=== PATIENT | female | born 1950 | race Caucasian/White ===

== ENCOUNTER 2016-09-19 14:13 | Inpatient (IN) | payer MEDICARE, OTHER ==
--- NOTE | ~2016-09-19 | CO ---
Unit #: [id number] #: [id number] Patient: ALEAH CALDERON [id number] [facility]. [place], [place] [address] [id number] I MR#: [id number] NAME: ALEAH CALDERON ROOM: 316 Age: 66 Sex: F Admission Date: 09/19/2016 : 1950 Attending Physician: Lakhwinder Mijares M.D. Primary Care Physician: Bashir Gabriel M.D. Consultation Date: 09/19/2016 CONSULTATION REPORT REASON FOR CONSULTATION Possible pneumonia. HISTORY OF PRESENT ILLNESS A 44-year-old gentleman, who has cardiomyopathy, hypertension, and tobacco use, presents with a several day history of gradual increase shortness of breath. He did have some cough with mucopurulent sputum. He presented to the emergency room and had diffuse pulmonary infiltrates, markedly elevated blood pressure and evidence that consists of congestive heart failure. He has received Lasix in addition to nebulized bronchodilators and antibiotics and he feels dramatically better this afternoon. He did not notice much in the way of wheezing. He did have fever and maybe some scant hemoptysis, mainly mucus with some blood tinged. PAST MEDICAL HISTORY Remarkable for COPD, hypertension, and left ventricular dysfunction. MEDICATIONS At home, he uses Symbicort only p.r.n. and he likely uses albuterol p.r.n. He was on Catapres, Lortab, Coreg, hydralazine, aspirin, and Prinivil. ALLERGIES No known medical allergies. SOCIAL HISTORY He smokes. He drinks. He denies marijuana or other recreational drug use. He is retired. He worked in construction. There are no ongoing occupational or recreational exposures. FAMILY HISTORY No definite familial lung disease. REVIEW OF SYSTEMS He did have fever. No headache. No chest pain, palpitations, abdominal pain, melena, hematochezia, hematuria, dysuria, focal weakness, paresthesias, leg pain, or swelling. He feels much better now. Further review of systems negative. PHYSICAL EXAMINATION GENERAL: Reveals the patient, who is in no acute distress on room air. In fact, he was walking around the hospital, I had to call him back to his room. VITAL SIGNS: He had a T-max of 102.2, now he is afebrile; pulse 77; respiratory rate is 18; blood pressure 141/84. He is 6 feet tall, 254 Unit #: [id number] #: [id number] Patient: ALEAH CALDERON pounds, BMI is 34. HEENT: Pupils are equal, round, and reactive to light. Sclerae anicteric. Head, atraumatic. NECK: Supple. No supraclavicular or cervical adenopathy appreciated. CHEST: Clear. No wheeze, stridor, consolidation, or crackles. CARDIAC: Reveals regular rate and rhythm. Possible soft murmur. No gallop. ABDOMEN: Soft and nontender. No hepatomegaly or rebound. EXTREMITIES: Reveal no clubbing, cyanosis, or edema. No calf tenderness. SKIN: Warm and dry without rash or diaphoresis. NEUROLOGIC: Grossly intact. No focal motor or sensory deficits. DIAGNOSTIC STUDIES LABORATORY RESULTS: BUN 17, creatinine is 1.6, potassium is 3.3 and has been replaced. His BNP is 387. Lactic acid was 2.9, originally it was 1.1. White blood cell count 12.4, hemoglobin 13.7, platelet count 198. Influenza screen negative. Urinalysis fairly unremarkable. IMAGING STUDIES: Chest x-ray, diffuse pulmonary infiltrates bilaterally consistent with pulmonary edema. Blood cultures performed and are pending. CARDIOVASCULAR STUDIES: EKG, T-wave abnormalities consistent with LVH and repolarization. IMPRESSION 1. Pulmonary infiltrates consistent with congestive heart failure. 2. Fever, mucus production, cough, possible pneumonia, possible atypical. 3. Scant hemoptysis most likely secondary to infection. 4. Likely obstructive sleep apnea with snoring. 5. Left ventricular dysfunction. 6. Chronic kidney disease. 7. Hypertension. PLAN Antibiotics for now. Check procalcitonin, Legionella, strep urinary antigens, and respiratory pathogen panel. Follow up cultures, adjust antibiotics as needed. Certainly, no smoking would be of great benefit. I would suggest outpatient PFT and nocturnal polysomnography. We will consider CT scan of the chest and certainly bronchoscopy would be considered if hemoptysis reoccurs. Thank you very much for allowing me to participate in the care of Mr. Denton. Dictated by... Ton Abreu M.D. RENATA/carola TD: 09/20/2016 02:25 JOB #: [id number] Unit #: [id number] #: [id number] Patient: ALEAH CALDERON CONSULTATION REPORT X Ton Abreu MD CONSULTATION REPORT
--- NOTE | ~2016-09-19 | CR72 ---
[facility] A Service of [facility] & [facility] RADIOLOGY TEXT RESULTS PATIENT: ALEAH CALDERON LOCATION: [facility] 316-01 : 48 UNIT #: [id number] AGE: [address]: Lakhwinder Mijares MD SEX: F ORDER DR: [id number] [facility] [address] [facility]. [place], [place] [address] [id number] I MR#: [id number] Acc #: [id number] NAME: ALEAH CALDERON : 1950 SEX: F STUDY DATE/TIME: 09/19/2016 13:31 [facility] 15770 STUDY DESCRIPTION: CR Chest Single View Portable Attending Physician: Kalyani Stout M.D. Ordering Physician: Terrie Foley M.D. Primary Care Physician: Bashir Gabriel M.D. MEDICAL IMAGING REPORT This report is preliminary unless electronic signature is present EXAM Chest portable, 09/19/2016, 1331 hours. CLINICAL HISTORY 66-year-old woman with complaint of shortness of air, cough and fever today, low oxygen saturation levels while on 3 L of oxygen supplementation. COMPARISON 08/07/2016 FINDINGS Portable upright chest demonstrates normal cardiac, mediastinal and hilar contours. There is diffuse interstitial change throughout both lungs, new from the prior study, likely representing diffuse edema. There is no airspace density or pleural effusion. IMPRESSION New bilateral diffuse interstitial changes in both lungs, which is moderate, likely representing edema. No definite airspace edema, pneumonia or effusion seen. STAT * RESULT Dictated by... Mercy Fernandez M.D. THIS IS AN ELECTRONICALLY VERIFIED REPORT Mercy Fernandez M.D. at 09/20/2016 9:25 AM Saumya TD: 09/19/2016 14:01 JOB #: [id number] [facility] A Service of [facility] & [facility] RADIOLOGY TEXT RESULTS PATIENT: ALEAH CALDERON LOCATION: [facility] 316-01 : 48 UNIT #: [id number] AGE: [address]: Lakhwinder Mijares MD SEX: F ORDER DR: MEDICAL IMAGING REPORT COPY
--- NOTE | ~2016-09-19 | CO ---
Unit #: [id number] #: [id number] Patient: ALEAH CALDERON [id number] [place], [place] [address] [id number] I MR#: [id number] NAME: ALEAH CALDERON ROOM: 316 Age: 66 Sex: F Admission Date: 09/19/2016 : 1950 Attending Physician: Lakhwinder Mijares M.D. Primary Care Physician: Bashir Gabriel M.D. Consultation Date: 09/20/2016 CONSULTATION REPORT DISCREPANCY IN FLORINEF DOSAGE, KINDLY VERIFY REASON FOR CONSULTATION Evaluate for congestive heart failure. HISTORY OF PRESENT ILLNESS This is a 66-year-old, white female, whom we have seen in the past, but does not follow up in the office; has severe COPD; wears home oxygen at night; diabetic; hypertension; chronic kidney disease; had a cardiac cath back in 2004, which was normal coronaries; EF at that time was 35% to 40%, and last year had an echo that is LVEF was 50% to 55%; has moderate mitral regurgitation; moderate pulmonary artery hypertension; has seizure disorder; chronic anemia; nicotine abuse; she came to the hospital with increased shortness of breath and nonproductive cough and weakness. The patient was hospitalized and discharged on 08/10/2016 with episode of acute on chronic kidney failure, hypotension that was secondary to dehydration with adrenal insufficiency. Cosyntropin stimulation test was abnormal. They started her on low-dose dexamethasone. She also has a history of orthostatic hypotension and has been on Florinef. The patient lives at home with who takes care of her. She went to her primary care physician about a week ago. Dr. Gabriel was giving some steroids for some exacerbation of her COPD. He was worried that she was trying to get bronchitis. The patient did report that she had pneumonia a few months ago. The last dose of her steroid was yesterday. Her does not feel like she is just showing any signs of improvement. She has more dyspnea with exertion and also her oxygen level is a little low during the day without her oxygen and she usually only uses oxygen at nighttime. The patient had lost 20 pounds over the last 6 months, but had regained most of that weight back. She does not feel like she is having any lower extremity edema. She has taken all of her medications as prescribed. She denies any chest pain; pain in her neck, bilateral jaws, shoulders, arms, or elbow. She says she might feel occasional palpitation, but does not feel heart racing. She has had no dizziness, presyncope, or syncope. In the emergency room, the patient's blood pressure was 136/60, heart rate was 91, respirations 13, her oxygen level was 95% on 3 L. Her chest x-ray shows new bilateral interstitial changes concerning for edema. Her BNP is 244. EKG shows normal sinus rhythm. Cardiology has been asked to assist with evaluation and management. PAST MEDICAL HISTORY 1. In 2004, had a cardiac cath that revealed normal coronaries. At that time, her LVEF of 35% to 40%. Unit #: [id number] #: [id number] Patient: ALEAH CALDERON 2. Last 2D echo on 09/05/2015 shows LVEF of 50% to 55%, [id number] mitral regurgitation, mild tricuspid regurgitation with elevated RVSP of 34 mmHg. 3. Chronic diastolic congestive heart failure. 4. Severe COPD, wears home O2 at h.s. 5. Diabetes mellitus type 2. 6. Hyperlipidemia. 7. Hypertension. 8. Chronic kidney disease. Follows with Dr. Luis. 9. Seizure disorder. 10. Bipolar disorder. 11. Chronic back pain. 12. Peripheral neuropathy. 13. Chronic anemia due to folic acid, B12 deficiency. 14. History of orthostatic hypotension, on Florinef. 15. Recent hospitalization, discharged on 08/10/2016 with acute on chronic kidney disease, hypotension, I thought it was dehydration with adrenal insufficiency-cosyntropin stimulation test was abnormal and started on low-dose dexamethasone and was discharged without a diuretic. PAST SURGICAL HISTORY 1. Left knee surgery. 2. Hysterectomy. HOME MEDICATIONS Oxycodone 30 mg every 6 hours p.r.n., alprazolam 0.5 mg t.i.d. p.r.n., levothyroxine 75 mcg p.o. daily, quetiapine 400 mg p.o. at bedtime, Keppra 1000 mg b.i.d., calcitriol 0.25 mcg p.o. daily, dexamethasone 0.5 mg daily, metoprolol 12.5 mg p.o. b.i.d., aspirin 81 mg p.o. daily, magnesium 400 mg p.o. b.i.d., Proventil inhalation every 4 hours p.r.n., sodium bicarb 650 mg p.o. b.i.d., fluoxetine 20 mg p.o. b.i.d., Florinef 0.05 mg p.o. b.i.d. ALLERGIES No known drug allergies. SOCIAL HISTORY The patient lives with her . She ambulates with a cane and has a walker. She is very sedentary due to her multiple medical problems. She continues to smoke at least half a pack of cigarettes a day. She has been smoking most of her adult life. No alcohol or illicit drug abuse. FAMILY HISTORY Has lung cancer. Otherwise, no CAD reported. REVIEW OF SYSTEMS See details in HPI. PHYSICAL EXAMINATION GENERAL: Ms. Calderon is a 66-year-old, white female, in no acute respiratory distress. She is awake, alert, and oriented. VITAL SIGNS: Blood pressure is 151/78, heart rate 72, respirations 18, temperature 97.3, O2 saturations 100% on 3 L. NECK: Trachea midline. No thyromegaly. No lymphadenopathy. No jugular venous distention. HEART: S1, S2. Regular rate and rhythm. Soft systolic murmur at left sternal border. LUNGS: Diminished with faint scattered wheezes throughout. Unit #: [id number] #: [id number] Patient: ALEAH CALDERON ABDOMEN: Soft, nontender. Positive bowel sounds present. EXTREMITIES: Pedal pulses are palpable. Trace pedal edema. DIAGNOSTIC STUDIES LABORATORY RESULTS: ABGs; pH is 7.377, pCO2 of 55.7, pO2 of 57.7, O2 sats 87.2 that is on FiO2 of 4 L. Glucose is 123, BUN 30, creatinine 1.6, eGFR is 34.1, sodium 139, potassium 4.6, chloride 100, CO2 of 32, calcium is 8.5, phosphorus is 3.0, magnesium is 1.4, total protein 5.4, albumin 2.9, bilirubin total 0.6, AST 9, ALT 8, alkaline phosphatase is 59. BNP is 244. Lactic acid is 1.1. INR is 1.0. WBCs 5.5, hemoglobin 9.6, hematocrit 29.4, and platelets 147. Blood cultures are pending. Sputum culture pending. Initial cardiac enzymes; CK-MB is less than 1.0. Troponin is less than 0.05. CK-MB is less than 1.0. Troponin less than 0.05. IMAGING STUDIES: Chest x-ray shows new bilateral diffuse interstitial changes in both lungs, which is moderate likely represented edema, no definite airspace edema, pneumonia, or effusions seen. CARDIOVASCULAR STUDIES: EKG shows normal sinus rhythm with ventricular rate of 95 beats per minute, questionable Q-wave in V1, poor R-wave progression. IMPRESSION 1. Acute on chronic respiratory failure. 2. Acute exacerbation of chronic obstructive pulmonary disease. 3. Chronic diastolic congestive heart failure. Left ventricular ejection fraction of 50% to 55% on last 2D echo on 09/05/2015 with [id number] mitral regurgitation, mild tricuspid regurgitation, and elevated RVSP 34 mmHg. 4. Chronic kidney disease. 5. In 2004, normal coronaries on cardiac cath. 6. Diabetes mellitus type 2. 7. Hyperlipidemia. 8. Hypertension. 9. Seizure disorder. 10. Bipolar. 11. Chronic back pain. 12. Peripheral neuropathy. 13. Adrenal insufficiency, started on dexamethasone. 14. History of orthostatic hypotension, on Florinef. 15. Nicotine abuse. PLAN 1. Cardiology consult to assist with evaluation and management. 2. On interview and exam, it appears that her symptoms are likely more pulmonary in nature. She does have some scattered wheezes, but no significant swelling in her lower extremities, abdomen, and no significant jugular venous distention. Dr. Miller discussed with the patient and her at length her cardiac cath that was done back in 2004 revealed normal coronaries. Her echo done in 2016 shows LVEF of 50% to 55%. 3. We will continue to manage medically. 4. Pulmonology has been consulted to assist with evaluation and management. She is on IV steroids along with her nebulizer inhalers. Unit #: [id number] #: [id number] Patient: ALEAH CALDERON 5. We will supplement mag. We will check magnesium level with magnesium sulfate 2 g IV x1 and then continue on her oral supplement and we will check her electrolytes tomorrow. 6. Encourage the patient to completely quit smoking. Smoking cessation information provided to the patient. 7. On exam, there were no signs or symptoms of acute congestive heart failure. 8. Pulmonary does suggest maybe a CT of the chest. 9. Further recommendations pending per Dr. Freeman. Thank you very much for allowing us to assist in the care. Dictated by... Albert Johnson/carola TD: 09/21/2016 02:32 JOB #: [id number] CONSULTATION REPORT X Sarah Mclean APRN X CONSULTATION REPORT
--- NOTE | ~2016-09-19 | DS ---
Unit #: [id number] #: [id number] Patient: ALEAH CALDERON [id number] [place], [place] [address] [id number] I MR#: [id number] NAME: ALEAH CALDERON ROOM: 316 Age: 66 Sex: F Admission Date: 09/19/2016 : 1950 Discharge Date: 09/22/2016 Attending Physician: Lakhwinder Mijares M.D. Primary Care Physician: Bashir Gabriel M.D. DISCHARGE SUMMARY DISCHARGE DIAGNOSES 1. Acute chronic obstructive pulmonary disease exacerbation. 2. Acute hypoxic respiratory failure secondary to #1. 3. Acute tracheobronchitis. 4. Chronic diastolic heart failure with pleural effusion. Cardiology had recommended Lasix every other day, had a small dose of 100 mg orally daily. 5. B12 and folate deficiency, will be replacing. 6. Chronic stage 3 kidney disease, followed by nephrology outpatient. 7. Adrenal insufficiency, chronically on Florinef and dexamethasone. 8. Chronic pain, is on chronic (1) pain management. 9. History of seizure disorder, stable on Keppra. 10. Dyslipidemia, stable on statin therapy. 11. Bipolar disorder, no aminata during this hospitalization. 12. Tobacco usage, we have stressed cessation, patient is willing to try this. CONSULTANTS [facility] cardiology with Dr. Miller and pulmonary with Dr. Abreu and Dr. Morris. PROCEDURES None. IMAGING 1. Chest x-ray on 09/19/2016 with Impression: New bilateral diffuse interstitial changes in both lungs, which is moderate likely representing edema, with no definite air space edema, pneumonia, or effusion seen. 2. On 09/21/2016, chest x-ray at that time revealed impression: Persistent interstitial opacities with worsening hazy consolidation in the mid to lower lung zones on the right. Findings on the right are suspicious for pneumonia in the appropriate clinical context. Differential would also include asymmetric edema or atelectasis. Followup to clearing is recommended. Imaging features suggestive of underlying COPD with fibrosis and scarring. No pneumothorax. 3. CT on 09/21/2016, this is a decubitus CT to assess the pleural effusion. Impression: Small free-flowing right pleural effusion. LABS On the day of discharge, patient's labs includes BMP - glucose 139, BUN 36, creatinine 1.8, sodium 137, potassium 3.9, chloride 98, calcium 8.3, phosphorus 3.0, magnesium 1.6. CBC with WBC of 7.1, rbc's is 2.58, hemoglobin 8.5, hematocrit 25.6, MCV 99.1, MCH is 32.8, MCHC 33.1, RDW Unit #: [id number] #: [id number] Patient: ALEAH CALDERON 16.0, platelet is 137, MCV is 9.3. We did assess patient's anemia status. Patient was found to have iron of 26, total iron binding capacity is 232, transferrin is 166, trans saturation is 11%. B12 is 254, folate 3.4. Did assess patient's TSH was 0.70. HOSPITAL COURSE The patient is a pleasant, 66-year-old female with a past medical history of chronic respiratory failure, COPD, diastolic CHF, chronic anemia, chronic kidney disease, adrenal insufficiency, chronic pain, seizure disorder, hyperlipidemia, bipolar disorder, who presents to the emergency department due to symptoms of shortness of breath. The patent states she had a one week history of increasing shortness of breath and nonproductive cough. She denies any fever. She was apparently seen by her primary care physician a week prior to hospitalization and was given steroids, which she was taking as prescribed. The last dose was the day prior to hospitalization. She has denied any chest pain. She has a hospital bed and sleeps with the bed propped up, which is not a new symptom. She has denied paroxysmal nocturnal dyspnea. She has had some dyspnea on exertion. She states she had gained 20 pounds over the past month. She has been taking her medications as prescribed. Her oxygen saturation was 80% on 3 L at home. She typically uses 3 L to sleep at night only. The patient's tells me that she was previously on Lasix 20 mg orally every other day. He cannot tell me who started this or who had discontinued it, but patient did tell me that her circulator did not do this. Upon arrival in the emergency department the patient's oxygen saturation was 95% on 3 L, pulse 91, respiratory rate is 13, blood pressure was 136/60. Her chest x-ray had shown new bilateral interstitial change concerning for edema. BNP was 234. She was admitted to [facility]. Dr. Abreu seen in consultation for the acute hypoxic respiratory failure. She was treated with aggressive IV Solu-Medrol and bronchiolitics and bronchodilators. She was seen in consultation with cardiology with concern with some indeterminate heart failure component, who initially thought the patient had no heart failure but with the repeated chest x-ray with the interstitial findings, as well as pleural effusion, the patient eventually was decided to be placed back on Lasix 20 mg orally every other day. At this time, the patient tells me that she is back to her normal baseline. She is back on 2 L. She is saturating well at 98%. I am assessing to see if she needs chronic continuous O2 usage during the day, in addition to her not nocturnal use only or not. She tells me that she is not longer dyspneic and she is ready to be discharged home. ACTIVITIES Resume activities as prior to hospitalization with ambulating every day as tolerated. DIET To resume a heart healthy diet. FOLLOWUP INSTRUCTIONS 1. To follow up with Dr. Morris within three weeks. 2. She will have a followup with Dr. Miller in four to six weeks. 3. Followup with her primary care physician within one to two weeks. DISCHARGE MEDICATIONS 1. Symbicort two puffs inhaled twice daily. 2. DuoNeb one inhalation 4 times daily as needed for dyspnea and/or wheezing. Unit #: [id number] #: [id number] Patient: ALEAH CALDERON 3. Prednisone 40 mg orally for 4 days; 30 mg orally for 4 days; 20 mg orally for 4 day; and then 10 mg orally daily. 4. Doxycycline 100 mg orally twice daily for five days. 5. Florinef 0.05 mg orally twice daily. 6. Bicarbonate 650 mg orally twice daily. 7. Magnesium oxide 400 mg orally twice daily. 8. Dexamethasone 0.5 mg orally daily. 9. Keppra 1,000 mg orally twice daily. 10. Fluoxetine 20 mg orally twice daily. 11. Quetiapine 400 mg orally at bedtime. 12. Alprazolam 0.5 mg orally 3 times daily as needed for anxiety. 13. Metoprolol tartrate 12.5 mg orally twice daily. 14. Lasix 20 mg orally every other day to be started by tomorrow, 09/23/2016. 15. Iron gluconate 324 mg orally twice daily. 16. Aspirin 81 mg orally daily. 17. Oxycodone 30 mg orally every 6 hours as needed for severe pain. 18. Levothyroxine 75 mcg orally daily. 19. Calcitrol 0.5 mg orally daily. 20. Vitamin B12 1,000 mcg orally daily. This dictation took 40 minutes to include patient education and to coordinate care. Dictated by... Justin Moya PA-C for Jai Hickman/myles TD: 09/22/2016 12:27 JOB #: [id number] DISCHARGE SUMMARY X X DISCHARGE SUMMARY
--- NOTE | ~2016-09-19 | CR67 ---
[facility] A Service of [facility] & [facility] RADIOLOGY TEXT RESULTS PATIENT: ALEAH CALDERON LOCATION: [facility] 316-01 : 48 UNIT #: [id number] AGE: [address]: Lakhwinder Mijares MD SEX: F ORDER DR: [id number] [facility] [address] [place], [place] [address] [id number] I MR#: [id number] Acc #: [id number] NAME: ALEAH CALDERON : 1950 SEX: F STUDY DATE/TIME: 09/21/2016 17:11 UNIT: A U ROOM: [facility] STUDY DESCRIPTION: CR Chest Decubitus Moses Attending Physician: Lakhwinder Mijares M.D. Ordering Physician: Gokul Morris M.D. Primary Care Physician: Bashir Gabriel M.D. MEDICAL IMAGING REPORT This report is preliminary unless electronic signature is present EXAM Bilateral decubitus views of the chest, 09/21/2016 HISTORY Shortness of breath, generalized weakness and cough for 2 weeks. Benign essential hypertension, followup pleural effusions. FINDINGS Bilateral decubitus views of the chest show small free-flowing right pleural effusion with atelectatic changes at the right lung base. No left pleural effusion is identified. IMPRESSION Small free-flowing right pleural effusion. Dictated by... Sal Do M.D. THIS IS AN ELECTRONICALLY VERIFIED REPORT Sal Do M.D. at 09/22/2016 2:16 PM STEF/jesus TD: 09/22/2016 01:47 JOB #: [id number] MEDICAL IMAGING REPORT COPY
--- NOTE | ~2016-09-19 | CR63 ---
[facility] A Service of [facility] RADIOLOGY TEXT RESULTS PATIENT: ALEAH CALDERON LOCATION: [facility] 316 : 48 UNIT #: [id number] AGE: [address]: Lakhwinder Mijares MD SEX: F ORDER DR: [id number] [facility]. [place], [place] [address] [id number] MR#: [id number] #: [id number] NAME: ALEAH CALDERON : 1950 SEX: F STUDY DATE/TIME: 09/21/2016 7:06 UNIT: [address] ROOM: [facility] STUDY DESCRIPTION: CR Chest 2 View Attending Physician: Lakhwinder Mijares M.D. Ordering Physician: Lakhwinder Mijares M.D. Primary Care Physician: Bashir Gabriel M.D. MEDICAL IMAGING REPORT This report is preliminary unless electronic signature is present EXAM Chest 2 views, 09/21/2016 INDICATION 66-year-old female with COPD, shortness of air. Symptoms since yesterday. TECHNIQUE 2 views of the chest were performed. COMPARISON 09/19/2016 FINDINGS Patient is rotated to the right. Cardiac silhouette borderline in size and stable. Coarsened interstitial opacities are present bilaterally likely reflecting underlying fibrosis and scarring. Worsening hazy consolidation in the mid and lower lung zones on the right suspicious for pneumonia in the appropriate clinical context. No pneumothorax. No effusion. Thoracic spondylosis. IMPRESSION 1. Persistent interstitial opacities with worsening hazy consolidation in the mid and lower lung zones on the right. Findings on the right are suspicious for pneumonia in the appropriate clinical context. Differential would also include asymmetric edema or atelectasis. Followup to clearing is recommended. 2. Imaging features suggestive of underlying COPD with fibrosis and scarring. No pneumothorax. Dictated by... Pradeep Leyva M.D. THIS IS AN ELECTRONICALLY VERIFIED REPORT [facility] A Service of [facility] RADIOLOGY TEXT RESULTS PATIENT: ALEAH CALDERON LOCATION: [facility] 316 : 48 UNIT #: [id number] AGE: [address]: Lakhwinder Mijares MD SEX: F ORDER DR: Pradeep Leyva M.D. at 09/21/2016 3:22 PM OLAMIDE/suzette TD: 09/21/2016 10:55 JOB #: [id number] MEDICAL IMAGING REPORT COPY
--- NOTE | ~2016-09-19 | A ---
[facility] DATE: 09/20/16 Patient: ALEAH CALDERON Physician: MARISABEL Address: [address] [facility] Room/Bed: [address] [place] [address], Zip: [place] [address] Admit Date: 09/19/16 Date of : 48 Height: 5 5 Weight: 160 72.6 NUTRITIONAL ASSESSMENT: REASON: Consult RE: Weight loss, and 4 points nutrition screen risk RE: 20# unplanned weight loss 66 yo female admitted for SOB PMH: Cardiomyopathy, acute on chronic kidney disease, COPD, CHF, chronic respiratory failure, seizure disorder, HLD, HTN Anthropometrics: Ht: 65" Wt: 72.6 kg BMI: 26.6 Labs: Gluc 122 BUN 30 Creat 1.6 Alb 2.9 AST 9 ALT 8 Mg++ 1.4 GFR 34.1 BNP 232 Meds: Ferrous gluconate, solu-medrol, MgS04, KCl, vitamin B12, Mag-ox, sodium bicarbonate, lopressor, NaCl, levothroid I/O & Bowel function: 240/2, last BM 3/6 Skin Integrity: Dry skin BUE/ feet/ trunk Abrasion/ scab/ bruising- BUE/ right knee/ back Edema: none noted Diet: Heart healthy with fluid restriction per MD Assessment: Chart reviewed, events noted. Pt admitted for SOB. RD spoke with the pt and her at bedside. Pt reports that she lost ~20# over the past few months; however, she has actually gained weight over the past few weeks with improved intake and appetite. Pt believes this may be due to fluid accumulation. RD explained the pt's heart healthy diet and fluid restriction. Pt declines the need for supplements, stating they give her diarrhea. Pt consumed ~50% of her lunch per RD observation of tray. Pt denied having any further nutritional needs. RD noticed the pt's fluid restriction was not ordered in [facility], and had party plan sales unit advisor add the fluid restriciton (1800 mL FR ordered by MD). Dx: Unintended weight gain RT PMH, possibly excessive fluid intake AEB pt reported 10# weight gain. Intervention: 1. Heart healthy diet 2. 1800 mL fluid restriction Monitoring, Evaluation and Goals: [facility] DATE: 09/20/16 Patient: ALEAH CALDERON Physician: MARISABEL Address: [address] [facility] Room/Bed: [address] [place] [address], Zip: [place] [address] Admit Date: 09/19/16 Date of : 48 Height: 5 5 Weight: 160 72.6 1. Intake; tolerate >50-75% meals 2. Labs; WNL 3. Weight; prevent unintentional weight gain or loss Recommendations: 1. Continue heart healthy diet (this includes 2 gram Na+ restriction) with fluid restriction per MD. 2. Contact RD if further diet education needed. Pt is at mild nutritional risk. Respectfully, ERNIE ENGEL RD, LD [facility] cc: client file
--- NOTE | ~2016-09-19 | EKG ---
PATIENT: ALEAH CALDERON UNIT #: [id number] Ventricular Rate: 85 BPM Atrial Rate: 85 BPM P-R Interval: 104 ms QRS Duration: 74 ms Q-T Interval: 354 ms QTC Calculation(Bezet): 421 ms P [place]: 54 degrees Calculated R [place]: 59 degrees Calculated T [place]: 73 degrees Diagnosis Line: Sinus rhythm with short OK Diagnosis Line: Otherwise normal ECG Diagnosis Line: When compared with ECG of 07-AUG-2016 22:06, Diagnosis Line: QT has shortened Diagnosis Line: Confirmed by GATO RUTLEDGE MD ([id number]) on Diagnosis Line: 09/20/2016 4:10:30 PM INTERPRETING MD: MATY WEN
--- NOTE | ~2016-09-19 | CO ---
Unit #: [id number] #: [id number] Patient: ALEAH CALDERON [id number] [place], [place] [address] [id number] I MR#: [id number] NAME: ALEAH CALDERON ROOM: 316 Age: 66 Sex: F Admission Date: 09/19/2016 : 1950 Attending Physician: Lakhwinder Mijares M.D. Primary Care Physician: Bashir Gabriel M.D. Consultation Date: 09/19/2016 CONSULTATION REPORT REASON FOR CONSULTATION Respiratory failure, COPD. HISTORY OF PRESENT ILLNESS A 66-year-old female with COPD and chronic respiratory failure, but only partially compliant with oxygen, who has seen Dr. Morris in the past, presents with increasing shortness of breath. She noticed decreased saturations during the day and she "had used my oxygen more than usual." She was treated with steroids as an outpatient and improved, but then worsened. Here, she is required 3 to 5 L of oxygen to maintain adequate saturations. She has had tight wheezing, no sputum production, no chest pain or hemoptysis. There has been no fever. PAST MEDICAL HISTORY Remarkable for chronic respiratory failure, COPD, congestive heart failure, anemia, chronic kidney disease, adrenal insufficiency, seizure disorder, hyperlipidemia, and bipolar disorder. MEDICATIONS She cannot identify any inhalers that she is on. She does tell me that she takes them only as needed. Other medications per med rec sheet includes oxycodone a fairly large dose 30 mg every 6 hours, Xanax, Synthroid, quetiapine daily, Keppra, Rocaltrol, dexamethasone, metoprolol, aspirin, magnesium, mini nebs with albuterol, Antacids, Sarafem, and Florinef. ALLERGIES No known medical allergies. SOCIAL HISTORY She continues to smoke. FAMILY HISTORY No familial emphysema. There is lung cancer in her family. REVIEW OF SYSTEMS She denies fever, chills, chest pain, palpitations, abdominal pain, trouble swallowing, melena, hematochezia, hematuria, dysuria, focal weakness, paresthesias, leg pain, swelling out of the ordinary. Further review of systems negative. PHYSICAL EXAMINATION GENERAL: Reveals a patient, who is in sleep, very comfortable in the emergency room. She awakened easily. Unit #: [id number] #: [id number] Patient: ALEAH CALDERON VITAL SIGNS: She is afebrile, pulse is 103, respiratory rate is 25, blood pressure is 149/73, 5 feet 5 inches, 155 pounds. HEENT: Pupils are equal, round, and reactive to light. Sclerae anicteric. Head, atraumatic. Mucous membranes moist. She has dentures in place. NECK: Supple. No supraclavicular or cervical adenopathy appreciated. CHEST: Tight expiratory wheeze throughout all lung hathaway. No consolidation. No stridor. CARDIAC: Reveals distant heart tones. Regular rate and rhythm. No pathologic murmur, rub, or gallop. ABDOMEN: Soft and nontender. No hepatomegaly or rebound. EXTREMITIES: Reveal no clubbing, cyanosis, or edema. No calf tenderness. SKIN: Warm and dry without rash or diaphoresis. NEUROLOGIC: Grossly intact. No focal motor or sensory deficits. DIAGNOSTIC STUDIES IMAGING STUDIES: Chest x-ray chronic changes. It is a portable film, but her right hilum looks somewhat full to me. LABORATORY RESULTS: Arterial blood gas; pH is 7.37, pCO2 of 56, pO2 of 57 on 4 L. Her BUN is 27, creatinine is 1.7. BNP 244. INR normal. Cardiac enzymes, normal. CBC; white blood cell count 7.8, no eosinophilia, hemoglobin 9.6, and platelet count normal. Blood cultures performed and are pending. CARDIOVASCULAR STUDIES: EKG, fairly unremarkable. IMPRESSION 1. Acute exacerbation of chronic obstructive pulmonary disease. 2. Acute on chronic respiratory failure. 3. Chronic respiratory failure, only partially compliant with oxygen. 4. Ongoing active tobacco use. 5. "Abnormal chest x-ray," which may just be technique. 6. Chronic kidney disease. 7. Anemia, etc. PLAN Treatment of her COPD with steroids, antibiotics, nebulized bronchodilators. We will add inhaled corticosteroids, long-acting beta agonist. Oxygen to maintain adequate saturations. Certainly, no smoking is of great benefit and this has been discussed with the patient. Check room air oxygenation needs at discharge. I would suggest a good PA and lateral chest x-ray when stable to evaluate her right hilum and consider CT scan if there is concern. Thank you very much for allowing me to participate in the care of Ms. Calderon. Dictated by... Jai Chinchilla/carola TD: 09/20/2016 02:00 JOB #: [id number] Unit #: [id number] #: [id number] Patient: ALEAH CALDERON CONSULTATION REPORT X Ton Abreu MD CONSULTATION REPORT
--- NOTE | ~2016-09-19 | HP ---
Unit #: [id number] #: [id number] Patient: ALEAH CALDERON [id number] [place], [place] [address] [id number] I MR#: [id number] NAME: ALEAH CALDERON ROOM: 70002 Age: 66 Sex: F Admission Date: 09/19/2016 : 1950 Attending Physician: Kalyani Stout M.D. Primary Care Physician: Bashir Gabriel M.D. HISTORY AND PHYSICAL CHIEF COMPLAINT Shortness of breath. HISTORY OF PRESENT ILLNESS The patient is a 66-year-old female with a past medical history of chronic respiratory failure, COPD, CHF, chronic anemia, chronic kidney disease, adrenal insufficiency, chronic pain, seizure disorder, hyperlipidemia, and bipolar disorder, who presented to the emergency department for evaluation of the above. The patient states that she has had a one week history of increasing shortness of breath and nonproductive cough. She denies any fever. She was apparently seen by her primary care physician one week ago and given steroids which she has been taking as prescribed. The last dose was yesterday. She denies any chest pain. She has a hospital bed and sleeps with the bed propped up. That is not a new problem. She denies paroxysmal nocturnal dyspnea. She has had some dyspnea on exertion. She states that she has gained 20 pounds over the past month. She has been taking her medications as prescribed. Oxygen saturation was in the 80s on three liters at home. She is typically on three liters at night only. Upon arrival in the emergency department, the patient's oxygen saturation was 95% on three liters, pulse was 91, respirations 13, and blood pressure 136/60. Chest x-ray shows new bilateral interstitial change concerning for edema. BNP is 244. She is being admitted to [facility] for evaluation and further treatment. PAST MEDICAL HISTORY 1. Admission to [facility] August 08-2016, for acute on chronic kidney disease and hypotension thought to be secondary to dehydration with adrenal insufficiency. Cosyntropin stimulation testing was done and abnormal. She was placed on low-dose dexamethasone. 2. Chronic obstructive pulmonary disease followed by Dr. Morris. 3. Chronic respiratory failure on three liters of oxygen per nasal cannula at night. 4. Congestive heart failure, history of diastolic dysfunction. The patient had an echocardiogram December 16, 2012, that showed an ejection fraction of 60 with mild concentric left ventricular hypertrophy, mild mitral regurgitation, mild tricuspid regurgitation, and elevated right ventricular systolic pressure at 30-40 mmHg. She has seen Dr. Miller in the past. 5. Chronic anemia. 6. Chronic kidney disease followed by Dr. Luis. Unit #: [id number] #: [id number] Patient: ALEAH CALDERON 7. Adrenal insufficiency maintained on Florinef and dexamethasone. 8. Chronic pain maintained on opiates. 9. Seizure disorder, on Keppra. 10. Hyperlipidemia. 11. Bipolar disorder. PAST SURGICAL HISTORY 1. Left knee surgery. 2. Hysterectomy. SOCIAL HISTORY The patient lives with her . She continues to smoke a half pack of cigarettes daily. She denies alcohol use. Her code status is a Full Code. FAMILY HISTORY Lung cancer. ALLERGIES No known allergies. HOME MEDICATIONS 1. Oxycodone 30 mg q.6 hours p.r.n. 2. Alprazolam 0.5 mg t.i.d. p.r.n. 3. Levothyroxine 75 mcg daily. 4. Quetiapine 400 mg at bedtime. 5. Keppra 1000 mg twice daily. 6. Calcitriol 0.25 mcg daily. 7. Dexamethasone 0.5 mg daily. 8. Metoprolol 12.5 mg twice daily. 9. Aspirin 81 mg daily. 10. Magnesium 400 mg twice daily. 11. Proventil inhaled q.4 hours p.r.n. 12. Sodium bicarbonate 650 mg twice daily. 13. Fluoxetine 20 mg twice daily. 14. Florinef 0.05 mg twice daily. REVIEW OF SYSTEMS A complete review of systems is negative except as indicated in the History of Present Illness. PHYSICAL EXAMINATION VITAL SIGNS: Temperature is 98.7, pulse 91, respirations 13, blood pressure 130/60, and oxygen saturation is 95% on 3 liters. GENERAL: Patient is a female who is awake, alert, and in no acute distress. HEENT: Head is atraumatic. Mucous membranes are moist. NECK: Supple. Trachea is midline. CARDIOVASCULAR: Regular rate and rhythm. LUNGS: Scattered crackles and wheezes. Breathing is not labored with conversation. ABDOMEN: Soft and nontender with bowel sounds present in all four quadrants. EXTREMITIES: Nontender with no pedal edema. NEUROLOGIC: Patient is awake and alert. She is oriented x3. She follows commands. PSYCHIATRIC: Mood and affect are normal. Patient is cooperative. SKIN: Skin of examined areas is warm and dry. Unit #: [id number] #: [id number] Patient: ALEAH CALDERON DIAGNOSTIC STUDIES LABORATORY: Arterial blood gas shows a pH of 7.37, PCO2 of 55.7, and PO2 of 57.7 on 4 liters. Complete blood count notable for hemoglobin and hematocrit of 9.6 and 29.4, respectively, MCV is 100.7, and RDW 16.4. INR is 1. Troponin is less than 0.05. Lactic acid is 1.1. BNP is 244. Comprehensive metabolic panel is notable for a BUN and creatinine of 26 and 1.7, respectively, and albumin is 3.4. IMAGING: Chest x-ray shows new bilateral interstitial change concerning for edema. CARDIOLOGY: EKG shows sinus rhythm with a rate of 85 beats per minute. ASSESSMENT The patient is a 66-year-old female with: 1. Acute on chronic respiratory failure. 2. Chronic obstructive pulmonary disease exacerbation with continued tobacco abuse. 3. Congestive heart failure exacerbation. The patient has a history of diastolic dysfunction with echocardiogram results as noted above. 4. Acute on chronic anemia. The patient's hemoglobin was 10.2 on August 25, 2016. It is 9.6 today. 5. Chronic kidney disease followed by Dr. Luis. 6. Adrenal insufficiency maintained on Florinef and dexamethasone. 7. Chronic pain maintained on opiates. 8. Seizure disorder, on Keppra. 9. Hyperlipidemia. 10. Bipolar disorder. PLAN 1. Admit to intermediate level. 2. Two gram sodium, 1800 mL fluid restricted, heart-healthy diet. 3. Supplemental oxygen 2-4 liters to maintain saturations greater than 92%. 4. DuoNebs q.4 hours while awake and q.2 hours p.r.n. 5. Solu-Medrol 80 mg IV q.12 hours. 6. Mucinex 600 mg p.o. b.i.d. 7. Consult Dr. Morris regarding acute on chronic respiratory failure. 8. Doxycycline 100 mg p.o. b.i.d. for possible acute bronchitis. 9. A 2D echo if not done within the past year. 10. Strict I/Os. 11. Daily weights. 12. TSH. 13. Consult Dr. Miller regarding congestive heart failure. 14. Iron studies, B12, and folate. 15. Hemoccult stool. 16. Repeat labs in the morning. 17. Check magnesium level. 18. SCDs for DVT prophylaxis. 19. Additional workup and consultants based on above. 20. Regarding code status, the patient is a Full Code. 1. Dictated by Kalyani Stout M.D. [place]/miladys Unit #: [id number] #: [id number] Patient: ALEAH CALDERON TD: 09/19/2016 17:02 JOB #: [id number] HISTORY AND PHYSICAL X Kalyani Stout MD HISTORY AND PHYSICAL
[2016-09-19 13:17] LABS: ARTERIAL BLD GAS O2 SATURATION 87.2 % (90.0-100.0); ARTERIAL BLOOD GAS CARBOXY HB 1.1 %sat (0.0-9.0); ARTERIAL BLOOD GAS HCO3 32.7 mmol/L; ARTERIAL BLOOD GAS MET HB 0.6 %sat (0.0-2.0); ARTERIAL BLOOD GAS pH 7.377 (7.350-7.450)
[2016-09-19 13:18] LABS: ARTERIAL BLOOD GAS PCO2 55.7 mmHg (35.0-45.0)
[2016-09-19 13:19] LABS: ARTERIAL BLOOD GAS ALLEN TEST NORMAL; ARTERIAL BLOOD GAS ART SITE RIGHT RADIAL; ARTERIAL BLOOD GAS DELIVERY NASAL CANNULA; ARTERIAL BLOOD GAS PO2 57.7 mmHg (80.0-100); ARTERIAL DRAW? YES
[2016-09-19 13:47] LABS: BASOPHIL% 0.3 % (0-2.5); EOSINOPHIL% 0.5 % (0.0-7.0); HEMATOCRIT 29.4 % (35.0-45.0); HEMOGLOBIN 9.6 gm/dL (12.0-16.0); LYMPHOCYTE# 1.9 X10e3 (1.0-3.5); LYMPHOCYTE% 24.2 % (17.0-45.0); MEAN CELL VOLUME 100.7 FL (83-96); MEAN CORPUSCULAR HEMOGLOBIN 32.7 PG (28-34); MEAN CORPUSCULAR HGB CONC 32.5 g/dL (30-36); MEAN PLATELET VOLUME 8.6 FL (6.5-11.5); MONOCYTE# 0.6 X10e3 (0-1.0); MONOCYTE% 7.3 % (3.0-12.0); NEUTROPHIL# 5.3 X10e3 (1.5-7.1); NEUTROPHIL% 67.7 % (40-75); PLATELET COUNT 147 X10e3 (140-420); RED BLOOD COUNT 2.92 X10e (3.90-5.30); RED CELL DISTRIBUTION WIDTH 16.4 % (11.0-15.5); WHITE BLOOD COUNT 7.8 X10e3 (4.0-10.5)
[2016-09-19 13:49] LABS: DIFF IND NO
[2016-09-19 14:02] LABS: POC - CKMB <1.0 ng/mL (0.0-7.9); POC - TROPONIN <0.05 ng/mL (<=0.05)
[~2016-09-19 14:13] MED LIST: ACETAMINOPHEN PO; ADVAIR 5001 DISK W/D PO; ALBUTEROL17 GM INH; ALPRAZOLAM PO; ALPRAZOLAM0.25 MG PO; ALPRAZOLAM0.5 MG PO; AMOXICILLIN PO; ANTACID650 MG PO; ASPIRIN EC81 M1 PO; ASPIRIN PO; ASPIRIN81 M1 PO; ASPIRIN81 MG PO; AUGMENTIN875 M1 PO; B-12250 MCG PO; B12 HEALTH1000 MCG/1 PO; BUMEX1 MG PO; CALCITRIOL0.25 MC1 PO; CALCITRIOL0.25 MCG PO; COLACE PO; COMBIVENT INH14.7 GM; COMBIVENT MININEB INH; COUMADIN2.5 MG PO; DEPAKOTE ER; DEPAKOTE PO; DEXAMETHASONE0.5 MG PO; DILANTIN PO; DURAGESIC TOP; FAMOTIDINE PO; FERROUS GLUCON324 MG PO; FERROUS SULFATE; FLORINEF ACETA0.1 MG PO; FLORINEF0.1 M1 PO; FLOVENT HFA12 GM INH; FOLIC ACID PO; FOLIC ACID1 MG PO; FUROSEMIDE40 MG PO; GLUCOTROL PO; GLUCOVANCE 5/501 TA1; GLUCOVANCE 5/501 TA1 PO; GLYNASE PO; KADIAN PO; KCL PO; KEPPRA1000 MG PO; KEPPRA750 M1 PO; LASIX; LASIX PO; LASIX20 MG PO; LEVAQUIN PO; LEVAQUIN750 M1 PO; LEVOTHYROXINE75 MC1 PO; LIPITOR; LISINOPRIL PO; LOPRESSOR PO; MAG-OX 400400 MG PO; MAG-OXIDE400 MG PO; MAGNESIUM400 M1 PO; METOLAZONE2.5 MG PO; METOPROLOL SUCC25 MG PO; METOPROLOL TAR25 MG PO; METOPROLOL TART25 MG PO; MILK OF MAGNESIA PO; MIRALAX17 GM PO; NEURONTIN PO; NICOTINE T1 PATCH .2 TOP; NICOTINE TRANSD21 MG EXT; NICOTINE TRANSD21 MG TOP; NORCO 7.5-3251 EACH PO; OXYCODONE HCL30 MG PO; PATIENT'S PHARMACY; PERCOCET 5-3251 TAB PO; PERCOCET10; PERCOCET10 PO; PHYSCIAN; POTASSIUM CHLO10 MEQ DOB; PREDNISONE PO; PREDNISONE10 MG PO; PREDNISONE10 MG/DOSE PO; PROAIR HFA8.5 GM IH; PROCRIT20000 U/ML INJ; PROVENTIL HFA PO; PROVENTIL INH0.5 ML NEB; PROZAC PO; PROZAC40 M1 PO; PV NEURO VITE T1 TAB PO; QUETIAPINE FUM400 MG PO; REQUIP0.5 MG PO; REQUIP1 MG PO; ROXICODONE30 M1 PO; SARAFEM20 MG PO; SEROQUEL PO; SEROQUEL XR50 MG PO; SEROQUEL400 MG PO; SODIUM BICARBO650 MG PO; SPIRIVA18 MCG INH; SYMBICORT INH; VALPROIC ACID250 MG PO; VIBRAMYCIN100 M1 PO; VIMPAT100 MG PO; VIMPAT50 MG PO; VITAMIN B122500 MCG PO; XANAX0.5 M1 PO; ZAROXYLYN PO; ZEMPLAR2 MCG PO; ZIAGEN300 M1; ZITHROMAX PO; ZOCOR PO
[2016-09-19 14:33] LABS: ALBUMIN SERUM 3.4 g/dL (3.5-5.0); BILIRUBIN, DIRECT 0.1 mg/dL (0.0-0.2); BILIRUBIN,INDIRECT 0.3 mg/dL (0.0-0.9); BILIRUBIN,TOTAL 0.4 mg/dL (0.2-2.0); BUN/CREATININE RATIO 15.29; CALCIUM SERUM 8.8 mg/dL (8.4-10.2); CREATININE SERUM 1.7 mg/dL (0.6-1.4); GLOM FILT RATE Estimated 31.8 mL/min (>60); POTASSIUM 3.8 mmol/L (3.5-5.1); PROTEIN TOTAL SERUM 6.2 g/dL (6.0-8.3)
[2016-09-19 15:41] LABS: POC - CKMB <1.0 ng/mL (0.0-7.9); POC - TROPONIN <0.05 ng/mL (<=0.05)
[2016-09-19 17:22] LABS: FOLATE (FOLIC ACID) 3.4 ng/mL (>5.8)
[2016-09-20 05:44] LABS: HEMATOCRIT 26.2 % (35.0-45.0); HEMOGLOBIN 8.7 gm/dL (12.0-16.0); LYMPHOCYTE# 0.5 X10e3 (1.0-3.5); LYMPHOCYTE% 8.2 % (17.0-45.0); MEAN CELL VOLUME 98.9 FL (83-96); MEAN CORPUSCULAR HGB CONC 33.4 g/dL (30-36); MEAN PLATELET VOLUME 8.9 FL (6.5-11.5); MONOCYTE# 0.1 X10e3 (0-1.0); NEUTROPHIL% 89.8 % (40-75); PLATELET COUNT 139 X10e3 (140-420); RED BLOOD COUNT 2.65 X10e (3.90-5.30); RED CELL DISTRIBUTION WIDTH 15.8 % (11.0-15.5); WHITE BLOOD COUNT 5.5 X10e3 (4.0-10.5)
[2016-09-20 05:54] LABS: DIFF IND NO
[2016-09-20 06:23] LABS: ALBUMIN SERUM 2.9 g/dL (3.5-5.0); BILIRUBIN,TOTAL 0.6 mg/dL (0.2-2.0); BUN/CREATININE RATIO 18.75; CALCIUM SERUM 8.5 mg/dL (8.4-10.2); CREATININE SERUM 1.6 mg/dL (0.6-1.4); GLOM FILT RATE Estimated 34.1 mL/min (>60); MAGNESIUM 1.4 mg/dL (1.6-3.0); POTASSIUM 4.6 mmol/L (3.5-5.1); PROTEIN TOTAL SERUM 5.4 g/dL (6.0-8.3)
[2016-09-21 05:15] LABS: HEMATOCRIT 27.7 % (35.0-45.0); HEMOGLOBIN 9.1 gm/dL (12.0-16.0); MEAN CELL VOLUME 99.4 FL (83-96); MEAN CORPUSCULAR HEMOGLOBIN 32.5 PG (28-34); MEAN CORPUSCULAR HGB CONC 32.7 g/dL (30-36); MEAN PLATELET VOLUME 9.2 FL (6.5-11.5); RED BLOOD COUNT 2.79 X10e (3.90-5.30); RED CELL DISTRIBUTION WIDTH 15.8 % (11.0-15.5); WHITE BLOOD COUNT 6.9 X10e3 (4.0-10.5)
[2016-09-21 07:02] LABS: CALCIUM SERUM 8.9 mg/dL (8.4-10.2); CREATININE SERUM 1.7 mg/dL (0.6-1.4); GLOM FILT RATE Estimated 31.8 mL/min (>60); MAGNESIUM 1.9 mg/dL (1.6-3.0); POTASSIUM 4.2 mmol/L (3.5-5.1)
[2016-09-22 06:43] LABS: HEMATOCRIT 25.6 % (35.0-45.0); HEMOGLOBIN 8.5 gm/dL (12.0-16.0); MEAN CELL VOLUME 99.1 FL (83-96); MEAN CORPUSCULAR HEMOGLOBIN 32.8 PG (28-34); MEAN CORPUSCULAR HGB CONC 33.1 g/dL (30-36); MEAN PLATELET VOLUME 9.3 FL (6.5-11.5); RED BLOOD COUNT 2.58 X10e (3.90-5.30); WHITE BLOOD COUNT 7.1 X10e3 (4.0-10.5)
[2016-09-22 07:32] LABS: CALCIUM SERUM 8.6 mg/dL (8.4-10.2); CREATININE SERUM 1.8 mg/dL (0.6-1.4); GLOM FILT RATE Estimated 29.7 mL/min (>60); POTASSIUM 3.9 mmol/L (3.5-5.1)
[2016-09-22] MEDS ORDERED: SYMBICORT INH (13:07)
[2016-09-22] MEDS ORDERED: FERROUS GLUCON324 MG PO (13:08)
[2016-09-22] MEDS ORDERED: LASIX20 MG PO (13:08)
[2016-09-22] MEDS ORDERED: DOXYCYCLINE HY100 M3 PO (13:09)
[2016-09-22] MEDS ORDERED: PREDNISONE (13:10)
[2016-09-22] MEDS ORDERED: B-121000 MC1 PO (13:10)
== END 2016-09-22 15:51 | disposition home or self-care (01) | DRG 291 ==
LOC: CED 14:13 → CEDOF 15:50 → C3A PCU 20:44
PROVIDERS: Family Medicine; Internal Medicine; Internal Medicine Cardiovascular Disease; Physician Assistant Medical; Student in an Organized Health Care Education/Training Program
PROC: B246YZZ Ultrasonography of Right and Left Heart using Other Contrast (ICD-10-PCS; principal; 2016-09-20)
DX: I50.33 Acute on chronic diastolic (congestive) heart failure (principal); J96.21 Acute and chronic respiratory failure with hypoxia; I27.2 Other secondary pulmonary hypertension; J44.1 Chronic obstructive pulmonary disease with (acute) exacerbation; E27.40 Unspecified adrenocortical insufficiency; E83.42 Hypomagnesemia; I13.0 Hypertensive heart and chronic kidney disease with heart failure and stage 1 through stage 4 chronic kidney disease, or unspecified chronic kidney disease; N18.3 Chronic kidney disease, stage 3 (moderate); I34.0 Nonrheumatic mitral (valve) insufficiency; E11.9 Type 2 diabetes mellitus without complications; E78.5 Hyperlipidemia, unspecified; G40.909 Epilepsy, unspecified, not intractable, without status epilepticus; F31.9 Bipolar disorder, unspecified; G62.9 Polyneuropathy, unspecified; Z90.710 Acquired absence of both cervix and uterus; Z72.0 Tobacco use; E86.0 Dehydration
CPT/HCPCS: 36415; 36600; 71010; 71020; 71035; 80048; 80053; 80076; 82308; 82553; 82607; 82746; 82803; 83540; 83550; 83605; 83735; 83880; 84100; 84443; 84484; 85025; 85027; 85610; 85730; 87040; 93005; 93306; 94640; 94664; 94760; 96374; 99285; J2920; J2930; J3475

== ENCOUNTER 2016-10-08 05:08 | Emergency (ER) | payer MEDICARE, OTHER ==
--- NOTE | ~2016-10-08 | EKG ---
PATIENT: ALEAH CALDERON UNIT #: [id number] Ventricular Rate: 68 BPM Atrial Rate: 68 BPM P-R Interval: 156 ms QRS Duration: 78 ms Q-T Interval: 412 ms QTC Calculation(Bezet): 438 ms P [place]: 52 degrees Calculated R [place]: 31 degrees Calculated T [place]: 69 degrees Diagnosis Line: Normal sinus rhythm Diagnosis Line: Normal ECG Diagnosis Line: When compared with ECG of 19-SEP-2016 12:39, Diagnosis Line: No significant change was found Diagnosis Line: Confirmed by PORSHA SY MD ([id number]) on 10/09/2016 Diagnosis Line: 7:25:28 AM INTERPRETING MD: YOSSI WEN
--- NOTE | ~2016-10-08 | CR72 ---
[facility] A Service of [facility] RADIOLOGY TEXT RESULTS PATIENT: ALEAH CALDERON LOCATION: [facility] UNIT : 48 UNIT #: [id number] AGE: [address]: Terrie Foley MD SEX: F ORDER DR: [id number] [facility] [address] [place], [place] [address] [id number] E MR#: [id number] Acc #: [id number] NAME: ALEAH CALDERON : 1950 SEX: F STUDY DATE/TIME: 10/08/2016 4:16 UNIT: [facility] ROOM: STUDY DESCRIPTION: CR Chest Single View Portable Attending Physician: Terrie Foley M.D. Referring Physician: Self Referral-Refer Use Only Ordering Physician: Jonathan Crane M.D. Primary Care Physician: Bashir Gabriel M.D. MEDICAL IMAGING REPORT This report is preliminary unless electronic signature is present EXAM Frontal chest, 10/08/2016 INDICATIONS A 66-year-old female with cough, short of air, COPD, right leg soft tissue swelling. Symptoms 2 days TECHNIQUE Frontal chest compared 09/21/2016 FINDINGS Cardiac silhouette is borderline in size and stable. There has been interval decrease in hazy interstitial opacities in the mid and lower lung zone on the right probably reflecting improving pneumonia. Background changes suggest underlying interstitial fibrosis and scarring. No new dense consolidation, effusion or pneumothorax. Calcified granulomas are present. IMPRESSION 1. Improving appearance of the right lung probably reflecting improvement in right-sided pneumonia. 2. Persistent interstitial scarring and fibrosis. No new consolidation. Dictated by... Pradeep Leyva M.D. THIS IS AN ELECTRONICALLY VERIFIED REPORT Pradeep Leyva M.D. at 10/08/2016 10:12 PM All TD: 10/08/2016 15:14 JOB #: [id number] [facility] A Service of [facility] RADIOLOGY TEXT RESULTS PATIENT: ALEAH CALDERON LOCATION: [facility] : 48 UNIT #: [id number] AGE: [address]: Terrie Foley MD SEX: F ORDER DR: MEDICAL IMAGING REPORT Page 1 of 1 COPY
--- NOTE | ~2016-10-08 | US85 ---
[facility] A Service of [facility] RADIOLOGY TEXT RESULTS PATIENT: ALEAH CALDERON LOCATION: [facility] : 48 UNIT #: [id number] AGE: [address]: Terrie Foley MD SEX: F ORDER DR: [id number] [facility] [address] [place], [place] [address] [id number] E MR#: [id number] Acc #: [id number] NAME: ALEAH CALDERON : 1950 SEX: F STUDY DATE/TIME: 10/08/2016 5:44 UNIT: DEE ROOM: STUDY DESCRIPTION: [facility] [employer] Attending Physician: Terrie Foley M.D. Referring Physician: Queenie Self Referred Ordering Physician: Jonathan Crane M.D. Primary Care Physician: Bashir Gabriel M.D. MEDICAL IMAGING REPORT This report is preliminary unless electronic signature is present EXAM Right lower extremity duplex Doppler venous ultrasound. DATE OF EXAM 10/08/2016 COMPARISON Bilateral extremity duplex Doppler venous ultrasound dated August 18, 2015. INDICATIONS 66-year-old female with right lower extremity swelling since yesterday. FINDINGS There is edema subcutaneously below the knee. Venous ultrasound examination of the right lower extremity was performed using grayscale, spectral Doppler and color flow Doppler imaging. The examination is negative. There is no evidence of right lower extremity deep venous thrombus from the groin to the lower calf. Visualized greater saphenous vein is also patent. IMPRESSION Negative examination. No evidence of right lower extremity DVT. Subcutaneous edema diffusely below the right knee. Dictated by... Kan Jackson M.D. THIS IS AN ELECTRONICALLY VERIFIED REPORT Kan Jackson M.D. at 10/11/2016 12:36 AM [facility] A Service [facility] RADIOLOGY TEXT RESULTS PATIENT: ALEAH CALDERON LOCATION: [facility] : 48 UNIT #: [id number] AGE: [address]: Terrie Foley MD SEX: F ORDER DR: [place] TD: 10/08/2016 16:04 JOB #: [id number] MEDICAL IMAGING REPORT Page 1 of 1 COPY
[2016-10-08 04:40] LABS: BASOPHIL# 0.2 X10e3 (0-0.3); BASOPHIL% 1.9 % (0-2.5); DIFF IND NO; EOSINOPHIL# 0.1 X10e3 (0-0.7); EOSINOPHIL% 0.7 % (0.0-7.0); HEMOGLOBIN 8.3 gm/dL (12.0-16.0); LYMPHOCYTE# 2.1 X10e3 (1.0-3.5); LYMPHOCYTE% 24.9 % (17.0-45.0); MEAN CELL VOLUME 101.1 FL (83-96); MEAN CORPUSCULAR HEMOGLOBIN 32.4 PG (28-34); MEAN CORPUSCULAR HGB CONC 32.1 g/dL (30-36); MEAN PLATELET VOLUME 9.6 FL (6.5-11.5); MONOCYTE# 0.5 X10e3 (0-1.0); MONOCYTE% 5.7 % (3.0-12.0); NEUTROPHIL# 5.7 X10e3 (1.5-7.1); NEUTROPHIL% 66.8 % (40-75); PLATELET COUNT 124 X10e3 (140-420); RED BLOOD COUNT 2.57 X10e (3.90-5.30); RED CELL DISTRIBUTION WIDTH 16.1 % (11.0-15.5); WHITE BLOOD COUNT 8.5 X10e3 (4.0-10.5)
[2016-10-08 04:44] LABS: POC - CKMB <1.0 ng/mL (0.0-7.9); POC - TROPONIN <0.05 ng/mL (<=0.05)
[2016-10-08 05:05] LABS: ALBUMIN SERUM 3.4 g/dL (3.5-5.0); BILIRUBIN, DIRECT 0.2 mg/dL (0.0-0.2); BILIRUBIN,INDIRECT 0.3 mg/dL (0.0-0.9); BILIRUBIN,TOTAL 0.5 mg/dL (0.2-2.0); BUN/CREATININE RATIO 16.52; CALCIUM SERUM 8.2 mg/dL (8.4-10.2); CREATININE SERUM 2.3 mg/dL (0.6-1.4); GLOM FILT RATE Estimated 21.1 mL/min (>60); POTASSIUM 5.1 mmol/L (3.5-5.1); PROTEIN TOTAL SERUM 5.9 g/dL (6.0-8.3)
[2016-10-08 05:08] LABS: PARTIAL THROMBOPLASTIN TIME 25.2 SECONDS (23.5-31.3); PROTHROMBIN TIME (PATIENT) 10.5 SECONDS (9.6-11.5)
[~2016-10-08 05:08] MED LIST changes: +B-121000 MC1 PO; +DOXYCYCLINE HY100 M3 PO; +PREDNISONE
== END 2016-10-08 07:36 | disposition home or self-care (01) ==
LOC: CED 05:08
PROVIDERS: Emergency Medicine
DX: R60.0 Localized edema (principal); I11.0 Hypertensive heart disease with heart failure; I50.9 Heart failure, unspecified; J44.9 Chronic obstructive pulmonary disease, unspecified; F17.210 Nicotine dependence, cigarettes, uncomplicated; Z79.899 Other long term (current) drug therapy
CPT/HCPCS: 36415; 71010; 80048; 80076; 82553; 83880; 84484; 85025; 85610; 85730; 93005; 93971; 96374; 99284; J1940

== ENCOUNTER → 2016-11-25 | Outpatient (CLI) | payer MEDICARE, OTHER ==
[~2016-11-25] MED LIST changes: +AZITHROMYCIN500 MG PO; +DIFLUCAN100 MG PO; +MIRALAX17 G2 PO; +OMNICEF300 MG PO; +PROCRIT SUBQ; +[UNRECOGNIZED DRUG - CODE] SUBQ
--- NOTE | ~2016-11-25 | CT57 ---
[facility] A Service of [facility] & [facility] RADIOLOGY TEXT RESULTS PATIENT: ALEAH CALDERON LOCATION: CCAT : 48 UNIT #: [id number] AGE: [address]: Jazmin Umanzor SEX: F ORDER DR: [id number] [facility] [address] [place], [place] [address] [id number] O MR#: [id number] Acc #: [id number] NAME: ALEAH CALDERON : 1950 SEX: F STUDY DATE/TIME: 11/25/2016 12:09 UNIT: [facility] ROOM: STUDY DESCRIPTION: CT Chest Wo Cont Attending Physician: Jazmin Umanzor A.P.R.N. Referring Physician: Jazmin Umanzor A.P.R.N. Ordering Physician: Jazmin Umanzor A.P.R.N. Primary Care Physician: Bashir Gabriel M.D. MEDICAL IMAGING REPORT This report is preliminary unless electronic signature is present EXAM CT of the chest without contrast 11/25/2016 INDICATION Mediastinal adenopathy and cough for [address] images were obtained from the thoracic inlet through the dome of the diaphragm. No intravenous contrast material was administered. This CT exam was performed with one or more of the following radiation dose reduction techniques: automatic exposure control, adjustment of mA and/or kV according to patient size, and iterative reconstruction. FINDINGS This patient has fibrotic changes. These are actually in an apical predominant distribution. There is some subtle ground glass infiltrates but patient is also noted to have some peripheral reticulation. On prior study the patient had significant mosaic attenuation, which has resolved. There is chronic appearing scarring identified at the lung bases bilaterally. The thyroid gland and trachea appear within normal limits. There is a small hiatal hernia. Mediastinal lymph nodes actually appear slightly smaller on today's exam. For example a right paratracheal node measures 1.3 cm, previously it measured up to 1.7 cm while an AP window node measures 1.9 x 0.8 cm. Previously it measured about 1 cm in short axis dimensions. Low attenuation lesion is identified within the right lobe of the thyroid gland. There is a small hiatal hernia. There is no pleural or pericardial effusion. Main pulmonary artery is enlarged, which can be seen in the setting of pulmonary arterial hypertension. [facility] A Service of [facility] & [facility] RADIOLOGY TEXT RESULTS PATIENT: ALEAH CALDERON LOCATION: [facility] : 48 UNIT #: [id number] AGE: [address]: Jazmin Umanzor SEX: F ORDER DR: Images through the upper abdomen demonstrate a right renal cyst and cholelithiasis. There is also a cyst identified on the left kidney. Review of bony windows does not demonstrate any aggressive osseous abnormalities. IMPRESSION 1. This patient does have some fibrotic changes in both lungs. These are in a basilar predominant distribution. Previously identified mosaic attenuation as well as bilateral pleural effusions have resolved. I am not convinced I can see any new infiltrates on today's exam. 2. Borderline enlargement of the main pulmonary artery can be seen in the setting of pulmonary arterial hypertension. 3. Mediastinal lymph nodes actually appear improved when compared to the prior study. 4. Bilateral renal cysts and cholelithiasis. 5. Suspected right thyroid nodule. This can be better assessed with dedicated thyroid ultrasound. Please see the body of the report for any other additional incidental findings. Dictated by... Dana Iglesias M.D. THIS IS AN ELECTRONICALLY VERIFIED REPORT Dana Iglesias M.D. at 11/28/2016 7:55 AM KELLY/franklin TD: 11/25/2016 16:42 JOB #: [id number] MEDICAL IMAGING REPORT Page 1 of 1 COPY
== END | disposition home or self-care (01) ==
LOC: CCAT 11:50
DX: R59.0 Localized enlarged lymph nodes (principal); N28.1 Cyst of kidney, acquired; K80.20 Calculus of gallbladder without cholecystitis without obstruction; I77.89 Other specified disorders of arteries and arterioles
CPT/HCPCS: 71250

== ENCOUNTER → 2017-01-31 | Outpatient (CLI) | payer MEDICARE, OTHER ==
--- NOTE | ~2017-01-31 | EE ---
Unit #: [id number] #: [id number] Patient: ALEAH CALDERON [id number] [address] [address] [id number] O MR#: [id number] NAME: ALEAH ACLDERON : 1950 SEX: F STUDY DATE/TIME: 01/31/2017 UNIT: [facility] ROOM: STUDY DESCRIPTION: EEG Attending Physician: Lb Harrison II., M.D. Referring Physician: Lb Harrison II., M.D. Primary Care Physician: Bashir Gabriel M.D. NEURODIAGNOSTICS REPORT EXAM EEG. DATE OF STUDY 01/31/17 REASON FOR STUDY Seizures. TECH Audrey. TECHNICAL INFORMATION This is a routine EEG performed using the standard International 10-20 system of electrode placement. Photic stimulation was performed. Hyperventilation was not performed. REPORT Throughout the entire study, the best background rhythm seen is approximately 10 to 11 Hz. This rhythm appears to be symmetric and does attenuate to eye opening and closure. Photic stimulation was performed and did not elicit any specific epileptiform abnormalities; however, some artifact was noted throughout that procedure. A good photic driving response is seen. Hyperventilation was not performed. No sleep was recorded during the study. Throughout the entire study, there were no electrographic seizures recorded nor were there any independent epileptiform abnormalities seen. INTERPRETATIONS Normal EEG. A normal awake EEG does not rule out the possibility of a seizure disorder. Clinical correlation is advised. Dictated by... Lb Harrison II., M.D. GWS/daija TD: 02/03/2017 08:25 JOB #: [id number] Unit #: [id number] #: [id number] Patient: ALEAH CALDERON NEURODIAGNOSTICS REPORT Page 1 of 1 X NEURODIAGNOSTICS REPORT
== END | disposition home or self-care (01) ==
LOC: CEEG 08:48
DX: R56.9 Unspecified convulsions (principal)
CPT/HCPCS: 95816

== ENCOUNTER 2017-03-07 11:18 | Inpatient (IN) | payer MEDICARE, OTHER ==
[~2017-03-07] VITALS: Ht 165.1 cm; Wt 66.0 kg
--- NOTE | ~2017-03-07 | CR72 ---
[facility] A Service of [facility] & [facility] RADIOLOGY TEXT RESULTS PATIENT: ALEAH CALDERON LOCATION: [address] : 48 UNIT #: [id number] AGE: [address]: Mag Kate MD SEX: F ORDER DR: [id number] [facility] [address] [place], [place] [address] [id number] I MR#: [id number] Acc #: [id number] NAME: ALEAH CALDERON : 1950 SEX: F STUDY DATE/TIME: 03/07/2017 UNIT: [facility] ROOM: [facility] STUDY DESCRIPTION: CR Chest Single View Portable Attending Physician: Marshal Garcia M.D. Ordering Physician: Er [facility] Primary Care Physician: Bashir Gabriel M.D. MEDICAL IMAGING REPORT This report is preliminary unless electronic signature is present EXAM Chest portable 03/07/2017 1301 hours HISTORY 66-year-old woman with dizziness, pneumonia, low blood pressure post line placement today. COMPARISON Chest CT 11/25/2016. Portable chest film 10/08/2016. FINDINGS 2 upright chest films were performed to include all of the lungs. There is a stable mild prominence of the cardiac silhouette with tortuous aorta. There is a right IJ catheter with tip in mid-SVC. No pneumothorax. The lungs demonstrate interstitial change bilaterally, increased from prior exams. The patient does appear on prior CT to have an element of chronic interstitial change, however the current findings appear increased and could represent superimposed edema. There is a band-like density along the right heart border extending towards the fissure. This could represent atelectasis or perhaps loculated fluid. IMPRESSION 1. Right IJ catheter tip is in the mid-SVC. No pneumothorax. 2. There are increased interstitial markings diffusely in both lungs. Patient has had a chronic interstitial pattern on prior CT 11/25/2016. Findings appear increased which could represent worsening of the underlying process or superimposed edema. 3. There is band-like density along the right heart border extending towards the fissure. It is favored that this represents atelectasis, although underlying pneumonia or underlying nodule cannot be excluded. [facility] A Service of [facility] & [facility] RADIOLOGY TEXT RESULTS PATIENT: ALEAH CALDERON LOCATION: CIC3 CICCU3-18 : 48 UNIT #: [id number] AGE: [address]: Mag Kate MD SEX: F ORDER DR: Dictated by... Mercy Fernandez M.D. THIS IS AN ELECTRONICALLY VERIFIED REPORT Mercy Fernandez M.D. at 03/08/2017 9:31 AM Debra TD: 03/07/2017 20:55 JOB #: [id number] MEDICAL IMAGING REPORT Page 1 of 1 COPY
--- NOTE | ~2017-03-07 | CR72 ---
[facility] A Service of [facility] & [facility] RADIOLOGY TEXT RESULTS PATIENT: ALEAH CALDERON LOCATION: [address] : 48 UNIT #: [id number] AGE: [address]: Mag Kate MD SEX: F ORDER DR: [id number] [facility] [address] [place], [place] [address] [id number] I MR#: [id number] Acc #: [id number] NAME: ALEAH CALDERON : 1950 SEX: F STUDY DATE/TIME: 03/08/2017 5:30 UNIT: [facility] ROOM: [facility] STUDY DESCRIPTION: CR Chest Single View Portable Attending Physician: Mag Kate M.D. Ordering Physician: Ton Abreu M.D. Primary Care Physician: Bashir Gabriel M.D. MEDICAL IMAGING REPORT This report is preliminary unless electronic signature is present EXAM Frontal chest 03/08/2017 INDICATION 66-year-old female with pneumonia, shortness of air, low blood pressure and dizziness. Symptoms 2 days. History of seizures. Hypertension. TECHNIQUE Frontal chest compared with 03/07/2017. FINDINGS The patient is rotated to the right. Right-sided central line unchanged. Cardiac silhouette stable. Interstitial prominence throughout both lungs not significantly changed. Re-demonstration of opacities associated with the fissure on the right. This may represent atelectasis or fluid associated with the fissure. Pneumonia also in the differential. There is volume loss on the right with probable atelectasis in the right lung base and there may be a trace right effusion. No distinct pneumothorax. Probable asymmetric atelectasis, scarring or less likely faint infiltrate in the midlung zone and lower lung zone on the left. IMPRESSION 1. Rotated study demonstrates interstitial prominence throughout both lungs which, in the chronic setting, probably reflects fibrosis although there may be an element of acute superimposed mild edema. Correlate with volume status. 2. Fluid, atelectasis or pneumonia associated with the fissure on the right. Probable small right effusion and right basilar atelectasis or infiltrate. 3. Nonspecific opacities in the left lung. No pneumothorax. Dictated by... Pradeep Leyva M.D. [facility] A Service of [facility] RADIOLOGY TEXT RESULTS PATIENT: ALEAH CALDERON LOCATION: [address] : 48 UNIT #: [id number] AGE: [address]: Mag Kate MD SEX: F ORDER DR: THIS IS AN ELECTRONICALLY VERIFIED REPORT Pradeep Leyav M.D. at 03/08/2017 12:21 PM OLAMIDE/abrahan TD: 03/08/2017 09:20 JOB #: [id number] MEDICAL IMAGING REPORT Page 1 of 1 COPY
--- NOTE | ~2017-03-07 | CR72 ---
[facility] A Service of [facility] & [facility] RADIOLOGY TEXT RESULTS PATIENT: ALEAH CALDERON LOCATION: [facility] 331-01 : 48 UNIT #: [id number] AGE: [address]: Mag Kate MD SEX: F ORDER DR: [id number] [facility] [address] [place], [place] [address] [id number] I MR#: [id number] Acc #: [id number] NAME: ALEAH CALDERON : 1950 SEX: F STUDY DATE/TIME: 03/09/2017 5:46 UNIT: [facility] ROOM: [facility] STUDY DESCRIPTION: CR Chest Single View Portable Attending Physician: Mag Kate M.D. Ordering Physician: Gokul Morris M.D. Primary Care Physician: Bashir Gabriel M.D. MEDICAL IMAGING REPORT This report is preliminary unless electronic signature is present EXAM Portable chest 03/09/2017 HISTORY 66-year-old female with shortness of air for 3 days. COMPARISON Chest 03/08/2017 FINDINGS 2 frontal views of the chest again demonstrate the patient rotated to the right. Right IJ central venous catheter is stable. No visible pneumothorax. Bilateral interstitial opacities are unchanged. Right pleural effusion is unchanged. Heart size and mediastinum appear stable. Left basilar atelectasis/infiltrate is unchanged. IMPRESSION 1. Patient again rotated to the right. No visible pneumothorax. 2. No interval change in bilateral interstitial opacities, right pleural effusion, or left basilar atelectasis/infiltrate. Dictated by... Jian Limon M.D. THIS IS AN ELECTRONICALLY VERIFIED REPORT Jian Limon M.D. at 03/10/2017 4:54 PM MERYL/abrahan TD: 03/09/2017 08:13 JOB #: [id number] MEDICAL IMAGING REPORT Page 1 of 1 COPY
--- NOTE | ~2017-03-07 | CO ---
Unit #: [id number] #: [id number] Patient: ALEAH CALDERON [id number] [facility]. [place], [place] [address] [id number] I MR#: [id number] NAME: ALEAH CALDERON ROOM: [facility] Age: 66 Sex: F Admission Date: 03/07/2017 : 1950 Attending Physician: Mag Kate M.D. Primary Care Physician: Bashir Gabriel M.D. Consultation Date: 03/07/2017 CONSULTATION REPORT REASON FOR CONSULTATION Respiratory failure. HISTORY OF PRESENT ILLNESS A 66-year-old female followed by Dr. Morris, who has severe end-stage COPD, possible interstitial lung disease, chronic respiratory failure with ongoing active tobacco use. She has had increasing fatigue, shakiness, and falls. In the emergency room, she was found to be hypoxemic, somewhat hypotensive. She did not comment on shortness of breath to open-ended questions; however, when I asked specifically if she had shortness of breath, she said yes. She denied much in the way of sputum production, wheezing, hemoptysis, chest pain, or leg pain. Her course in the ED has been fairly profound hypoxemia with borderline sats on 50% Ventimask and in fact arterial blood gases worsened with worsening acid base status. Chest x-ray is fairly abnormal with what looks like right middle lobe atelectasis. PAST MEDICAL HISTORY Remarkable for COPD; chronic respiratory failure, using oxygen only p.r.n. and at night at home; diastolic heart failure, chronic kidney disease; adrenal insufficiency; chronic pain; seizure disorder; hyperlipidemia; bipolar disorder; ongoing active tobacco use. MEDICATIONS At home. She cannot tell me what she is on, she says she is on a red inhaler and her breathing treatments. MAR suggest she is on Lopressor, Lasix, Seroquel, aspirin, Prozac, Florinef, iron, vitamin B12, oxycodone, Xanax, Synthroid, Keppra, calcitriol. She wears oxygen as needed and may be at night. ALLERGIES No known medical allergies. SOCIAL HISTORY She continues to smoke half a pack of cigarettes a day. The most she smoked was a pack and half of cigarettes a day basically for all her life. FAMILY HISTORY No definite familial lung disease. REVIEW OF SYSTEMS She denies chest pain, palpitations, abdominal pain, melena, hematochezia, hematemesis, hematuria, dysuria, focal weakness, paresthesias, leg pain, swelling. Further review of systems is negative. Unit #: [id number] #: [id number] Patient: ALEAH CALDERON PHYSICAL EXAMINATION GENERAL: Reveals a patient, who is chronically ill appearing, but does not appear to be in any acute distress despite her saturations in the high 80s. VITAL SIGNS: She is afebrile, pulse is 70, respiratory rate is 18, blood pressure is 100/51. HEENT: Pupils are equal, round, and reactive to light. Sclerae anicteric. Head, atraumatic. NECK: Supple. No supraclavicular or cervical adenopathy appreciated. Mucous membranes moist. CHEST: Prolonged expiratory phase. Tight expiratory wheeze. Some inspiratory squeak. Scattered rhonchi. CARDIAC: Reveals distant heart tones most of which were obscured by pulmonary adventitial sounds. Regular rate and rhythm. No definite murmur, rub, or gallop. ABDOMEN: Soft and nontender. No hepatomegaly or rebound. EXTREMITIES: Reveal no clubbing, cyanosis, or edema. No calf tenderness. SKIN: Warm and dry without rash or diaphoresis. NEUROLOGIC: She is intact. No focal motor or sensory deficits noted. DIAGNOSTIC STUDIES IMAGING STUDIES: Chest x-ray with increased interstitial markings. She has what appears to be right middle lobe atelectasis. LABORATORY RESULTS: Arterial blood gas; pH is 7.28, pCO2 of 61, PO2 of 56 that is on 50% face mask. BUN is 26, creatinine is 3.2. BNP has not been performed. INR normal. Cardiac enzymes, normal. White blood cell count 6.9, hemoglobin 7.9 and she has been anemic in the past, platelet count 182. Urinalysis; 3+ leukocyte esterase, she does have pyuria. Urine culture pending. Blood culture is pending. CARDIOVASCULAR STUDIES: EKG; no definite acute ischemic changes noted. IMPRESSION 1. Acute on chronic respiratory failure, certainly has some airways disease, possible some underlying interstitial lung disease. CT scan, a few months ago was reviewed. 2. Abnormal chest x-ray, right middle lobe atelectasis is possible. Cannot rule out pneumonia. 3. Chronic respiratory failure with only p.r.n. use. 4. Ongoing active tobacco use. 5. Chronic obstructive pulmonary disease. 6. Acute kidney injury/chronic kidney disease. 7. Anemia. 8. History of adrenal insufficiency. 9. Bipolar disorder. 10. Medical problems listed above. PLAN Noninvasive mask ventilation. Oxygen maintain adequate saturations. IV steroids and antibiotics for possible pneumonia and urinary sources. I will ask for Dr. Morris's last [address] scan of the chest when she is more stable. Thank you very much for allowing me to participate in the care of Ms. Calderon. Unit #: [id number] #: [id number] Patient: ALEAH CALDERON Dictated by... Jia Chinchilla/carola TD: 03/08/2017 05:35 JOB #: [id number] CC: Bashir Gabriel M.D. CONSULTATION REPORT Page 1 of 1 X Ton Abreu MD X CONSULTATION REPORT
--- NOTE | ~2017-03-07 | CO ---
Unit #: [id number] #: [id number] Patient: ALEAH CALDERON [id number] [address] [place], [place] [address] [id number] I MR#: [id number] NAME: ALEAH CALDERON ROOM: [facility] Age: 66 Sex: F Admission Date: 03/07/2017 : 1950 Attending Physician: Mag Kate M.D. Primary Care Physician: Bashir Gabriel M.D. Consultation Date: 03/08/2017 CONSULTATION REPORT REASON FOR CONSULT Acute on chronic kidney disease. HISTORY OF PRESENT ILLNESS The patient is a 66-year-old white female with a history of chronic kidney disease, stage 3 to 4 with a baseline creatinine of 2.0, also history of adrenal insufficiency, on Florinef. Per the patient's , she has had decreased p.o. intake over the past month. She came to the emergency room complaining of weakness and some shortness of breath. She was found to be very hypotensive in the emergency room with systolic blood pressures in the 90s. Repeat labs have also shown significant anemia with a hemoglobin of 6.8. Currently, she states she feels better. She is in no distress. She is wanting to eat. PAST MEDICAL HISTORY Significant for CKD, stage 3 to 4, congestive heart failure, adrenal insufficiency, bipolar disorder, seizure disorder. SOCIAL HISTORY Positive for tobacco. No alcohol. FAMILY HISTORY Noncontributory. CURRENT MEDICATIONS Reviewed per the chart. PHYSICAL EXAMINATION VITAL SIGNS: Blood pressure is 109/44, heart rate 70, respirations 14, temperature is 97.1. GENERAL: She is a thin white female. HEENT: Shows no JVD. No LAD. CARDIOVASCULAR: Regular rate and rhythm without murmurs, rubs, or gallops. LUNGS: Show rhonchi and crackles bilaterally. ABDOMEN: Soft, nontender, nondistended. EXTREMITIES: Show no clubbing, cyanosis, or edema. NEUROLOGIC: Grossly intact. PSYCHIATRIC: She is awake and alert. DIAGNOSTIC STUDIES LABORATORY RESULTS: Show sodium 139, potassium 4.2, chloride 102, bicarb 28, BUN 24, creatinine 2.4, calcium 8.4. White count 2.4, hemoglobin 6.8, platelets are 152. Her urine culture is negative. Unit #: [id number] #: [id number] Patient: ALEAH CALDERON ASSESSMENT AND PLAN 1. Acute renal failure on chronic kidney disease, stage 3 to 4, possibly secondary to dehydration. She does appear volume deplete on exam. She is not currently getting IV fluids, but she has orders for packed red blood cells. We will continue to monitor volume status after blood. May need to restart IV fluids. 2. Hypotension, likely secondary to volume depletion. We will continue to monitor. 3. We will continue her Florinef. 4. Anemia, etiology unclear. She denies any melena or bright red blood per rectum. Orders for 2 units of blood have been given. 5. Pneumonia. The patient with some rales and rhonchi bilaterally, currently on IV antibiotics. We will follow. Dictated by... Jai Masterson/carola TD: 03/09/2017 01:52 JOB #: [id number] CONSULTATION REPORT Page 1 of 1 X Jaycee Miner MD X CONSULTATION REPORT
--- NOTE | ~2017-03-07 | DS ---
Unit #: [id number] #: [id number] Patient: ALEAH CALDERON [id number] [address] [address] [id number] I MR#: [id number] NAME: ALEAH CALDERON ROOM: 472 Age: 66 Sex: F Admission Date: 03/07/2017 : 1950 Discharge Date: 03/14/2017 Attending Physician: Mag Kate M.D. Primary Care Physician: Bashir Gabriel M.D. DISCHARGE SUMMARY PRINCIPAL DIAGNOSES 1. Shock. 2. Dcbsv-sz-iqjgvvb hypercapnic hypoxic respiratory failure. 3. Community acquired pneumonia. 4. Acute exacerbation of chronic obstructive pulmonary disease. 5. Acute kidney injury on chronic kidney disease stage 4, with baseline creatinine of 1.6. Discharge creatinine is 1.6. 6. Aiszs-nu-wvlysgo anemia, multifactorial. 7. Anemia of chronic kidney disease requiring p.r.n. Aranesp. 8. Folate deficiency. 9. Leukopenia. Resolved. 10. Chronic diastolic congestive heart failure with ejection fraction of greater than 50%. No acute exacerbation. 11. Severe protein malnutrition. 12. Anxiety. 13. Bipolar disorder. 14. Adrenal insufficiency. 15. Pulmonary fibrosis. 16. Tobaccoism. 17. Seizure disorder. 18. Mucus plugging. 19. Severe esophageal candidiasis. CONSULTANTS Dr. Morris, pulmonology. Dr. Miner, nephrology. Dr. Calix, gastroenterology. PROCEDURES PERFORMED Transfusion of 2 units of packed red blood cells, which occurred without complication. EGD on 03/12/2017 with severe candidal esophagitis and pharyngitis, hiatal hernia, chronic gastritis noted, biopsies are currently pending. No evidence of bleeding. DIAGNOSTIC DATA IMAGING: Chest x-ray on 03/07/2017 with increased interstitial markings diffusely in both lungs. There is band-like density along the right heart border. Chest x-ray on 03/10/2017 with no changes. Chest x-ray on 03/14/2017 with increasing infiltrate and/or atelectasis of Unit #: [id number] #: [id number] Patient: ALEAH CALDERON the right upper lobe. CLINICAL HISTORY/HOSPITAL COURSE Ms. Calderon is a 66-year-old female with multiple medical problems, who presents to the emergency department with dizziness. In the emergency department she was found to be hypotensive. She is on chronic diuretics in addition to medications for adrenal insufficiency. Blood pressure did not resolve with IV hydration and the patient was subsequently admitted to the ICU. In regard to the patient's hypotension, she did require pressor therapy for a very short time, but this was discontinued within 24 hours of admission. Blood pressure has been stable since and she has been reinitiated on her home medications. I suspect most of her hypotension was primarily due to dehydration. She did have associated acute kidney injury and was monitored by nephrology, but she has returned to her baseline renal function. The patient was also found to be significantly hypoxic in the emergency department beyond baseline. Pulmonology was consulted. The patient was placed on empiric broad spectrum antibiotics in addition to nebulizer treatments and IV steroids. She did require BiPAP therapy initially for several days, but was subsequently titrated down to Oxymizer and now has returned to 4 liters of oxygen per nasal cannula continuously. Her baseline is 3 liters and she will continue a minor titration at home. Causative organism pneumonia was not identified. However, the patient has completed seven days of antibiotic therapy during hospitalization. The patient was also found to be significantly anemic upon presentation. She does have a history of anemia for which she was seen by Dr. Masterson in the past and received Aranesp injections intermittently. There are concerns that perhaps she had a GI bleed and Dr. Calix was consulted. However, the patient had no signs or symptoms of bleed and following transfusion hemoglobin has remained stable. She did undergo EGD which was unremarkable, with the exception of significant esophageal candidiasis for which the patient will complete treatment. There were several discussions regarding need for colonoscopy, particularly given patient has not had screening colonoscopy. She initially agreed and then refused and agreed and then refused and now the plan is to have it done as an outpatient. I will note, fecal occult blood testing was negative. She will be maintained on Procrit per nephrology on an outpatient basis. She will receive a dose prior to discharge. The patient's other chronic conditions remain stable. She is significantly underweight with poor oral intake, which I suspect is multifactorial, including her esophageal candidiasis and underlying anxiety and I suspect significant calorie requirements due to her respiratory failure. Her oral intake has improved during hospitalization and she will continue on some supplements at home. She will be discharged home later today. DISCHARGE CONDITION Stable. DISCHARGE STATUS Discharge to home. DISCHARGE MEDICATIONS Unit #: [id number] #: [id number] Patient: ALEAH CALDERON 1. Florinef 0.05 mg p.o. b.i.d. 2. Prednisone 10 mg tablets, 4 tablets for 3 days, then 3 tablets for 3 days, then 2 tablets for 3 days, then 1 tablet for 3 days and then discontinue. 3. Keppra 1000 mg b.i.d. 4. Fluoxetine 20 mg b.i.d. 5. Seroquel 400 mg t.i.d. 6. Xanax 0.5 mg p.o. b.i.d. p.r.n. anxiety. 7. Metoprolol tartrate 25 mg daily. 8. MiraLAX 17 g p.o. daily. 9. Lasix 20 mg daily. Please note this is a dose decrease. 10. Procrit 20,000 units subcutaneously on Fridays. 11. Ferrous gluconate 324 mg b.i.d. 12. Aspirin 81 mg daily. 13. Oxycodone 30 mg p.o. q.6 h. p.r.n. pain. 14. Levothyroxine 75 mg mcg p.o. daily. 15. Folic acid 1 mg daily. 16. Calcitriol 0.25 mcg p.o. daily. 17. Vitamin B12 1000 mcg p.o. daily. 18. Fluconazole 100 mg p.o. daily, to stop after dose on 03/16/2017. 19. Oxygen at 3-4 liters per nasal cannula continuously. DISCHARGE INSTRUCTIONS 1. The patient is instructed to follow a regular diet. 2. She can increase her activity as tolerated. 3. Refrain from any further tobacco use. 4. Wear oxygen at all times. FOLLOWUP 1. The patient needs to follow up with Dr. Calix as an outpatient for screening colonoscopy. 2. The patient needs to follow up with nephrology within the next two weeks, and again, arrange some outpatient Aranesp on a p.r.n. basis, particularly if her colonoscopy is also unremarkable. 3. The patient will follow up with Dr. Morris per his recommendations, with perhaps outpatient sleep study and/or arrangement for CPAP versus Trilogy. 4. The patient will also follow up with her primary care provider, Dr. Bashir Gabriel, in two weeks. Time spent on discharge today 43 minutes. Dictated by... Mag Kate M.D. VALERIE/sohan TD: 03/15/2017 11:42 JOB #: [id number] Unit #: [id number] #: [id number] Patient: ALEAH CALDERON DISCHARGE SUMMARY Page 1 of 1 X Mag Kate MD X DISCHARGE SUMMARY
--- NOTE | ~2017-03-07 | CR72 ---
[facility] A Service of [facility] & [facility] RADIOLOGY TEXT RESULTS PATIENT: ALEAH CALDERON LOCATION: [facility]2-01 : [birth year] UNIT #: [id number] AGE: [address]: Mag Kate MD SEX: F ORDER DR: [id number] [facility] [address] [place], [place] [address] [id number] I MR#: [id number] Acc #: [id number] NAME: ALEAH CALDERON : 1950 SEX: F STUDY DATE/TIME: 03/14/2017 4:42 UNIT: [facility] ROOM: [facility] STUDY DESCRIPTION: CR Chest Single View Portable Attending Physician: Mag Kate M.D. Ordering Physician: Gokul Morris M.D. Primary Care Physician: Bashir Gabriel M.D. MEDICAL IMAGING REPORT This report is preliminary unless electronic signature is present EXAM Portable chest HISTORY Respiratory failure for 1 week. FINDINGS Opacification of the right apex and the majority the lateral right upper chest is new compared to 03/10/2017 and is likely secondary to a combination of right pleural effusion and consolidation or atelectasis of the majority the right upper lung. Persistent small amount of fluid at the right base. New interstitial prominence in the lower lungs bilaterally could be secondary to edema or pneumonitis. Right IJ central line tip in the low SVC. Dictated by... Claudio Champion M.D. THIS IS AN ELECTRONICALLY VERIFIED REPORT Claudio Champion M.D. at 03/15/2017 4:19 AM DFL/ira TD: 03/14/2017 09:21 JOB #: [id number] MEDICAL IMAGING REPORT Page 1 of 1 COPY
--- NOTE | ~2017-03-07 | CR72 ---
[facility] A Service of [facility] & [facility] RADIOLOGY TEXT RESULTS PATIENT: ALEAH CALDERON LOCATION: [facility] 331-01 : [birth year] UNIT #: [id number] AGE: [address]: Mag Kate MD SEX: F ORDER DR: [id number] [facility] [address] [place], [place] [address] [id number] I MR#: [id number] Acc #: [id number] NAME: ALEAH CALDERON : 1950 SEX: F STUDY DATE/TIME: 03/10/2017 5:39 [facility]: [facility] STUDY DESCRIPTION: CR Chest Single View Portable Attending Physician: Mag Kate M.D. Ordering Physician: Gokul Morris M.D. Primary Care Physician: Bashir Gabriel M.D. MEDICAL IMAGING REPORT This report is preliminary unless electronic signature is present EXAM Single view chest. INDICATION Respiratory failure. Dizziness. Shortness of air. TECHNIQUE Single, portable, AP view of the chest compared to 03/09/2017. FINDINGS Heart and mediastinal contours are unchanged. There is a right IJ central line. Right basilar airspace opacity/effusions similar to the prior study. No pneumothorax. IMPRESSION No interval change. Dictated by... Armand Mast M.D. THIS IS AN ELECTRONICALLY VERIFIED REPORT Armand Mast M.D. at 03/10/2017 2:52 PM SIMONE/jessa TD: 03/10/2017 14:36 JOB #: [id number] MEDICAL IMAGING REPORT Page 1 of 1 COPY
--- NOTE | ~2017-03-07 | EKG ---
PATIENT: ALEAH CALDERON UNIT #: [id number] Ventricular Rate: 66 BPM Atrial Rate: 66 BPM P-R Interval: 140 ms QRS Duration: 88 ms Q-T Interval: 444 ms QTC Calculation(Bezet): 465 ms P [place]: 47 degrees Calculated R [place]: 31 degrees Calculated T [place]: 42 degrees Diagnosis Line: Normal sinus rhythm Diagnosis Line: Normal ECG Diagnosis Line: When compared with ECG of 08-OCT-2016 04:22, Diagnosis Line: No significant change was found Diagnosis Line: Diagnosis Line: Confirmed by PORSHA SY MD ([id number]) on 03/08/2017 Diagnosis Line: 7:15:56 AM INTERPRETING MD: YOSSI WEN
--- NOTE | ~2017-03-07 | CT57 ---
[facility] A Service of [facility] & [facility] RADIOLOGY TEXT RESULTS PATIENT: ALEAH CALDERON LOCATION: [facility]2- : 46 UNIT #: [id number] AGE: [address]: Mag Kate MD SEX: F ORDER DR: [id number] [facility] [address] [place], [place] [address] [id number] I MR#: [id number] Acc #: [id number] NAME: ALEAH CALDERON : 1950 SEX: F STUDY DATE/TIME: 03/14/2017 15:22 UNIT: [facility] ROOM: [facility] STUDY DESCRIPTION: CT Chest Wo Cont Attending Physician: Mag Kate M.D. Ordering Physician: Gokul Morris M.D. Primary Care Physician: Bashir Gabriel M.D. MEDICAL IMAGING REPORT This report is preliminary unless electronic signature is present EXAM CT chest HISTORY Hypoxic hypotensive 03/07/2017, abnormal chest x-ray 03/14/2017. Chronic respiratory failure, short of air. End-stage COPD. This CT exam was performed with one or more of the following radiation dose reduction techniques: automatic exposure control, adjustment of mA and/or kV according to patient size, and iterative reconstruction. FINDINGS The CT of the chest was performed without administration of intravenous contrast. Comparison chest CT 11/25/2016. Comparison chest radiograph 03/14/2017 demonstrating extensive new opacification in the right upper lobe with some volume loss suggesting components of atelectasis and pneumonia. A 1.1 cm right thyroid lobe nodule. No change. No axillary adenopathy. Mildly prominent mediastinal lymph nodes. There is a 2.2 cm x 1.6 cm right paratracheal lymph node, unchanged. There is a 1 cm x 1.4 cm aortopulmonary window lymph node previously 7 mm x 1.9 cm. The right hilar contour suggests hilar adenopathy. Heart zpqunz-dz-ssppq limits of normal in size. Aortic valvular and coronary arterial calcifications. Trace left effusion, not a drainable fluid collection. Small right effusion also not felt to be drainable. The visualized portions of the liver are unremarkable. Uncomplicated cholelithiasis. Spleen, pancreas, adrenal glands unremarkable. Right upper pole renal cyst, unchanged. Left lower pole renal cyst unchanged. No upper abdominal adenopathy. Esophagus, visualized portions of stomach, small bowel, colon remarkable. Body wall edema new compared to prior study and most pronounced in the STS. [facility] A Service of [facility] & [facility] RADIOLOGY TEXT RESULTS PATIENT: ALEAH CALDERON LOCATION: [facility]2- : 46 UNIT #: [id number] AGE: [address]: Mag Kate MD SEX: F ORDER DR: dependent portions of the thoracic body wall. Underlying emphysema. New airspace disease in the right upper lobe extending toward the periphery. Components of associated volume loss with some cardiomediastinal shift from left to right. There are areas of airspace consolidation in the periphery of the right lower lobe as well. There is soft a tissue density at the right hilum surrounding the right upper lobe bronchus and to a lesser extent the right middle lobe bronchus. I favor, given development since November 2016 and the relatively acute chest radiograph change that this is airspace disease centrally. Please correlate with patient's clinical presentation. Followup after treatment for presumed pneumonia recommended. If the findings do not clear with treatment for pneumonia or if the patient is not demonstrating signs or symptoms of pneumonia at this time then consider bronchoscopic assessment to evaluate for potential malignancy. There are patchier airspace densities in the right middle lobe and the consolidated portions of the right lower lobe also favored to represent pneumonia superimposed on underlying emphysema. The left lung shows chronic underlying fibrotic change with some scattered areas of mild patchy density in the left upper and lower lobes, more pronounced in the lower lobe and also favored to represent components of pneumonia superimposed on underlying emphysematous lung. There are calcified granulomata bilaterally. There is no clearly suspicious nodule. The aorta is normal in caliber with scattered atherosclerotic arterial calcifications. The main pulmonary artery is prominent at 3.2 cm in diameter, unchanged. Correlate with any clinical indications of underlying pulmonary arterial hypertension. The bony structures show multilevel degenerative change. No acute-appearing abnormality. There is a right internal jugular central venous catheter which terminates in the superior vena cava. IMPRESSION 1. Abnormal examination. Please see the complete dictation above for full details. There is consolidative airspace disease in the anteromedial right upper lobe and the inferolateral right upper lobe. There is peripheral consolidation in the right lower lobe inferolaterally. This is favored to represent multifocal right lung pneumonia. There is dense opacification/soft tissue density in the right hilar region around the right upper lobe bronchus and right middle lobe bronchus. This has developed in the interval from November 2016 with associated acute chest radiographic changes between March 10 and March 14, 2017. I favor all of these findings are related to right-sided pneumonia and right hilar airspace disease and reactive adenopathy. Please correlate clinically. Short-interval followup after treatment for presumed pneumonia is strongly recommended to confirm resolution of findings. If findings persist or if the patient it is not demonstrating clinical signs and symptoms of pneumonia then consider bronchoscopic evaluation to exclude potential malignancy. Again, pneumonia favored at present. 2. Patchier areas of airspace disease in aerated portions of right upper STS. [facility] A Service of [facility] RADIOLOGY TEXT RESULTS PATIENT: ALEAH CALDERON LOCATION: [facility]2-01 : 46 UNIT #: [id number] AGE: [address]: Mag Kate MD SEX: F ORDER DR: lobe, middle lobe and lower lobe, to a lesser extent in the left upper lobe and to a greater extent in the left lower lobe favored to represent areas of milder pneumonia superimposed on underlying chronic emphysema and chronic fibrotic change. 3. Trace left and small right pleural effusions. These are not drainable fluid collections. 4. Some of the airspace disease in the right lung favored to be atelectatic in nature. There is mild szrw-ax-okeoz cardiomediastinal shift. 5. Mediastinal adenopathy not significantly changed from 11/25/2016. 6. Healed granulomas disease. 7. Heart upper limits of normal in size. Stable. 8. Main pulmonary artery mildly prominent but stable. Likely reflecting some degree of underlying pulmonary arterial hypertension. 9. Bilateral renal cysts, stable. 10. Uncomplicated cholelithiasis. 11. Body wall edema in the dependent portions of the body wall. New compared to prior study. 12. 1.1 cm right thyroid lobe nodule unchanged from prior examination. If not previously evaluated, best further characterized with elective thyroid ultrasound. Dictated by... Jax Garcia M.D. THIS IS AN ELECTRONICALLY VERIFIED REPORT Jax Garcia M.D. at 03/15/2017 7:53 PM MIRNA/jesus TD: 03/14/2017 21:28 JOB #: [id number] MEDICAL IMAGING REPORT Page 1 of 1 COPY
--- NOTE | ~2017-03-07 | DS ---
Unit #: [id number] #: [id number] Patient: ALEAH CALDERON [id number] [address] [address] [id number] I MR#: [id number] NAME: ALEAH CALDERON ROOM: 472 Age: 66 Sex: F Admission Date: 03/07/2017 : 1950 Discharge Date: 03/15/2017 Attending Physician: Mag Kate M.D. Primary Care Physician: Bashir Gabriel M.D. DISCHARGE SUMMARY ADDENDUM DISCHARGE DIAGNOSES 20. Multifocal right-sided pneumonia. HOSPITAL COURSE After dictation yesterday patient was evaluated by pulmonology. She had a CT scan of her chest done which revealed a right-sided pneumonia and right hilar airspace disease with associated adenopathy. No other acute findings. Patient however remains stable. She has not had any fever nor has she had any leukocytosis and her hypoxia is at baseline. After evaluation today by Dr. Morris, he feels patient is stable to be discharged home. Thus she will be discharged with medications as outlined below. DISCHARGE CONDITION Stable. DISCHARGE STATUS Discharge to home with home health. DISCHARGE MEDICATIONS Are as dictated yesterday with the addition of: 20. Omnicef 300 mg p.o. b.i.d. for five days and 21. Azithromycin 500 mg p.o. daily for five days. DISCHARGE INSTRUCTIONS Are as previously dictated. FOLLOWUP Patient will follow up with Dr. Morris in two weeks. She needs an x-ray at that time and if infiltrates are not clear will recommend repeat CT versus bronchoscopy. Time spent on discharge today 33 minutes. Dictated by... Mag Kate M.D. VALERIE/samuel TD: 03/17/2017 15:11 JOB #: [id number] Unit #: [id number] #: [id number] Patient: ALEAH CALDERON DISCHARGE SUMMARY Page 1 of 1 X Mag Kate MD DISCHARGE SUMMARY
--- NOTE | ~2017-03-07 | HP ---
Unit #: [id number] #: [id number] Patient: ALEAH CALDERON [id number] [address] [address] [id number] I MR#: [id number] NAME: ALEAH CALDERON ROOM: [facility] Age: 66 Sex: F Admission Date: 03/07/2017 : 1950 Attending Physician: Srinivasa Garcia M.D. Primary Care Physician: Bashir Gabriel M.D. HISTORY AND PHYSICAL CHIEF COMPLAINT Dizziness. HISTORY OF PRESENT ILLNESS The patient is a 66-year-old female with a past medical history of chronic respiratory failure, COPD, CHF, chronic anemia, chronic kidney disease, adrenal insufficiency, chronic pain, seizure disorder, hyperlipidemia, and bipolar, brought to the emergency room with dizziness. The patient is a poor historian, and the history is obtained by speaking with the patient's at the bedside. The patient has been having dizziness for the last few weeks to a month, associated with productive cough. The patient currently smokes a pack of cigarettes daily. The patient also noticed to have black-colored stools; however, the states that the patient has been taking ljyf-nwk-pkufsgp iron pills. The patient has been unable to walk for the last few weeks to a month secondary to weakness. The patient denies any urinary complaints. The patient was found to be hypotensive in the emergency room with a systolic blood pressure in the 90s. Hemoglobin is down to 7.9 from baseline 8 to 9. Patient is being admitted for the above reasons. PAST MEDICAL HISTORY 1. Chronic obstructive pulmonary disease. 2. Chronic respiratory failure. 3. Congestive heart failure with diastolic dysfunction. 4. Chronic anemia. 5. Chronic kidney disease. 6. Adrenal insufficiency. 7. Chronic pain syndrome. 8. Seizure disorder. 9. Hyperlipidemia. 10. Bipolar disorder. PAST SURGICAL HISTORY 1. Left knee surgery. 2. Hysterectomy. SOCIAL HISTORY Patient lives with her . She continues to smoke a pack of cigarettes daily. Denies alcohol. Her code status is Full Code. FAMILY HISTORY Lung cancer. ALLERGIES Unit #: [id number] #: [id number] Patient: ALEAH CALDERON No known drug allergies. HOME MEDICATIONS 1. Hydrocodone. 2. Xanax. 3. Synthroid. 4. Keppra. 5. Calcitriol. 6. Aspirin. 7. Fluoxetine. 8. Florinef. 9. Ferrous gluconate. 10. Vitamin B12. 11. Lopressor. 12. Lasix 13. Seroquel. REVIEW OF SYSTEMS Positive for weakness, positive for productive cough, and positive for decreased oral intake. All other systems have been reviewed and are none. PHYSICAL EXAMINATION GENERAL: Patient is lying in bed not in acute distress. VITAL SIGNS: Temperature 96.9, pulse 68, respiratory rate 18, blood pressure 98/43, and saturating 88% on 3 liters. HEENT: Head atraumatic, normocephalic. Pupils equal, round, and reactive to light and accommodation. Dry mucous membranes. NECK: Supple. LUNGS: Decreased air entry at the bases. HEART: Regular rate and rhythm. ABDOMEN: Soft. Positive bowel sounds. EXTREMITIES: No cyanosis, no clubbing. NEUROLOGIC: Alert, awake, and oriented. Patient is more sleepy. PSYCHIATRIC: Mood and affect are appropriate. DIAGNOSTIC STUDIES LABORATORY: Troponin less than 0.05. ABG shows pH of 7.38, PCO2 of 54, PO2 of 60, bicarb 32.8, and oxygen saturation 86% on 15 liters Venturi mask. INR is 1.2. Lactic acid is 1.7. Sodium 136, potassium 4.3, chloride 95, bicarb 31, glucose 121, BUN 26, creatinine 3.2, alkaline phosphatase 107, and albumin 2.9. Lipase 21. Urinalysis shows 3+ leukocyte esterase, (1) urine WBCs, and urine bacteria. Hemoglobin 7.9 and WBC 6.9. IMAGING: Chest x-ray shows increased interstitial markings with baseline chronic interstitial process and a band-like density in the right middle lobe concerning for atelectasis versus pneumonia versus nodules. ASSESSMENT 1. Acute on chronic respiratory failure. 2. Probable pneumonia. 3. Urinary tract infection. 4. Acute kidney injury. PLAN Admit the patient to inpatient with telemetry. Patient will continue IV antibiotics with Rocephin and Zithromax. Patient will be seen by consultants from GI, Nephrology, and Pulmonary for the anemia, acute Unit #: [id number] #: [id number] Patient: CALDERON,ALEAH kidney injury, and acute on chronic respiratory failure. Continue with Protonix and check the stool for occult blood. Will hold the narcotics and the blood thinners for today. Further recommendations will follow as more lab results are available. Dictated by Jai Betancur TD: 03/07/2017 18:31 JOB #: [id number] HISTORY AND PHYSICAL Page 1 of 1 X SRINIVASA GARCIA MD X HISTORY AND PHYSICAL
--- NOTE | ~2017-03-07 | OR ---
Unit #: [id number] #: [id number] Patient: ALEAH CALDERON [id number] [address] [address] [id number] MR#: [id number] NAME: ALEAH CALDERON ROOM: 472 Date of Procedure: 03/12/2017 Admission Date: 03/07/2017 Surgeon: Willi Calix M.D. : 1950 Attending Physician: Mag Kate M.D. Primary Care Physician: Bashir Gabriel M.D. OPERATIVE REPORT PROCEDURE PERFORMED Esophagogastroduodenoscopy with biopsies. INDICATIONS FOR PROCEDURE A 66-year-old female with severe anemia, undergoing evaluation to look for any source of bleeding. MEDICATIONS Monitored anesthesia. POSTOPERATIVE FINDINGS 1. Severe Denia esophagitis and pharyngitis. Biopsies taken. 2. Hiatal hernia. 3. Gastritis, appears chronic. Biopsies taken. 4. Normal duodenum and distal duodenum. 5. No clear source of bleeding was seen. PLAN 1. Consider colonoscopy for further evaluation if patient is agreeable. 2. Start Diflucan. 3. Continue PPI therapy. DESCRIPTION OF PROCEDURE The patient was explained of the procedure, risks, and benefits along with the risks and benefits of anesthesia. She was brought to the endoscopy room. Versed was used for conscious sedation. The scope was passed down the mouth into esophagus, stomach, duodenum, and distal duodenum. Findings as described. Biopsies were taken. Gently, I pulled it out of the patient's mouth. She tolerated it well. Dictated by... Jai Funes/carola TD: 03/12/2017 13:33 JOB #: [id number] Unit #: [id number] #: [id number] Patient: ALEAH CALDERON OPERATIVE REPORT Page 1 of 1 X Willi Calix MD X PROCEDURE OPERATIVE NOTE
[~2017-03-07 11:18] MED LIST changes: -AZITHROMYCIN500 MG PO; -DIFLUCAN100 MG PO; -MIRALAX17 G2 PO; -OMNICEF300 MG PO; -PROCRIT SUBQ; -[UNRECOGNIZED DRUG - CODE] SUBQ
[2017-03-07 12:02] LABS: ARTERIAL BLOOD GAS CARBOXY HB 3.9 %sat (0.0-9.0); ARTERIAL BLOOD GAS HCO3 32.8 mmol/L; ARTERIAL BLOOD GAS MET HB 0.6 %sat (0.0-2.0); ARTERIAL BLOOD GAS pH 7.385 (7.350-7.450)
[2017-03-07 12:02] LABS: POC - TROPONIN <0.05 ng/mL (<=0.05)
[2017-03-07 12:03] LABS: ARTERIAL BLOOD GAS PCO2 54.9 mmHg (35.0-45.0); ARTERIAL BLOOD GAS PO2 60.7 mmHg (80.0-100)
[2017-03-07 12:04] LABS: ARTERIAL BLOOD GAS ALLEN TEST NORMAL; ARTERIAL BLOOD GAS ART SITE RIGHT RADIAL; ARTERIAL BLOOD GAS DELIVERY VENTURI; ARTERIAL DRAW? YES
[2017-03-07 12:10] LABS: BASOPHIL# 0.1 X10e3 (0-0.3); BASOPHIL% 0.8 % (0-2.5); DIFF IND YES; EOSINOPHIL# 0.1 X10e3 (0-0.7); EOSINOPHIL% 0.8 % (0.0-7.0); HEMATOCRIT 23.4 % (35.0-45.0); HEMOGLOBIN 7.9 gm/dL (12.0-16.0); LYMPHOCYTE% 14.6 % (17.0-45.0); MEAN CELL VOLUME 100.7 FL (83-96); MEAN CORPUSCULAR HEMOGLOBIN 33.8 PG (28-34); MEAN CORPUSCULAR HGB CONC 33.6 g/dL (30-36); MONOCYTE# 0.5 X10e3 (0-1.0); MONOCYTE% 7.2 % (3.0-12.0); NEUTROPHIL# 5.3 X10e3 (1.5-7.1); NEUTROPHIL% 76.6 % (40-75); PLATELET COUNT 182 X10e3 (140-420); RED BLOOD COUNT 2.32 X10e (3.90-5.30); RED CELL DISTRIBUTION WIDTH 13.9 % (11.0-15.5); WHITE BLOOD COUNT 6.9 X10e3 (4.0-10.5)
[2017-03-07 12:13] LABS: INR 1.2; PARTIAL THROMBOPLASTIN TIME 28.2 SECONDS (23.5-31.3); PROTHROMBIN TIME (PATIENT) 12.6 SECONDS (10.0-11.7)
[2017-03-07 12:18] LABS: URINE SOURCE CLEAN CATCH
[2017-03-07] MEDS ORDERED: PATIENT'S PHARMACY (12:19)
[2017-03-07] MEDS ORDERED: LOPRESSOR PO (12:19)
[2017-03-07] MEDS ORDERED: LASIX20 MG PO (12:19)
[2017-03-07] MEDS ORDERED: SEROQUEL PO (12:19)
[2017-03-07 12:23] LABS: URINE APPEARANCE CLOUDY; URINE BILIRUBIN NEG (NEG); URINE BLOOD 1+ (NEG); URINE COLOR YELLOW; URINE GLUCOSE NORM (NORM); URINE KETONE NEG (NEG); URINE LEUKOCYTE ESTERASE 3+ (NEG); URINE NITRATE NEG (NEG); URINE PROTEIN 1+ (NEG); URINE SPECIFIC GRAVITY 1.015 (1.003-1.035); URINE UROBILINOGEN NORM (NORM)
[2017-03-07 12:36] LABS: CULTURE INDICATED? YES; URINE BACTERIA AUWI 2+ (NEGATIVE)
[2017-03-07 12:37] LABS: ALBUMIN SERUM 2.9 g/dL (3.5-5.0); BILIRUBIN, DIRECT 0.2 mg/dL (0.0-0.2); BILIRUBIN,INDIRECT 0.5 mg/dL (0.0-0.9); BILIRUBIN,TOTAL 0.7 mg/dL (0.2-2.0); BUN/CREATININE RATIO 8.12; CALCIUM SERUM 8.6 mg/dL (8.4-10.2); CREATININE SERUM 3.2 mg/dL (0.6-1.4); GLOM FILT RATE Estimated 14.2 mL/min (>60); PROTEIN TOTAL SERUM 6.3 g/dL (6.0-8.3)
[2017-03-07 12:37] LABS: URINE SQUAMOUS EPITHELIAL CELL MODERATE /[HPF]
[2017-03-07 12:38] LABS: POTASSIUM 4.3 mmol/L (3.5-5.1)
[2017-03-07 12:47] LABS: PLATELET ESTIMATE NORMAL (NORMAL)
[2017-03-07 12:49] LABS: ANISOCYTOSIS SL
[2017-03-07 15:32] LABS: ARTERIAL BLD GAS O2 SATURATION 81.6 % (90.0-100.0); ARTERIAL BLOOD GAS CARBOXY HB 2.9 %sat (0.0-9.0); ARTERIAL BLOOD GAS HCO3 29.4 mmol/L; ARTERIAL BLOOD GAS MET HB 0.7 %sat (0.0-2.0); ARTERIAL BLOOD GAS pH 7.287 (7.350-7.450)
[2017-03-07 15:38] LABS: ARTERIAL BLOOD GAS ALLEN TEST NORMAL; ARTERIAL BLOOD GAS ART SITE RIGHT RADIAL; ARTERIAL BLOOD GAS PCO2 61.6 mmHg (35.0-45.0); ARTERIAL BLOOD GAS PO2 56.9 mmHg (80.0-100); ARTERIAL DRAW? YES
[2017-03-07 15:39] LABS: ARTERIAL BLOOD GAS DELIVERY VENTURI
[2017-03-08 05:41] LABS: HEMATOCRIT 20.1 % (35.0-45.0); LYMPHOCYTE# 0.2 X10e3 (1.0-3.5); LYMPHOCYTE% 9.4 % (17.0-45.0); MEAN CELL VOLUME 99.5 FL (83-96); MEAN CORPUSCULAR HGB CONC 34.1 g/dL (30-36); MEAN PLATELET VOLUME 8.7 FL (6.5-11.5); MONOCYTE% 0.8 % (3.0-12.0); NEUTROPHIL# 2.2 X10e3 (1.5-7.1); NEUTROPHIL% 89.8 % (40-75); PLATELET COUNT 152 X10e3 (140-420); RED BLOOD COUNT 2.02 X10e (3.90-5.30); RED CELL DISTRIBUTION WIDTH 13.4 % (11.0-15.5)
[2017-03-08 05:52] LABS: WHITE BLOOD COUNT 2.4 X10e3 (4.0-10.5)
[2017-03-08 05:53] LABS: DIFF IND YES; HEMOGLOBIN 6.8 gm/dL (12.0-16.0)
[2017-03-08 06:13] LABS: PLATELET ESTIMATE NORMAL (NORMAL); RBC NORMAL YES
[2017-03-08 06:22] LABS: CALCIUM SERUM 8.4 mg/dL (8.4-10.2); CREATININE SERUM 2.4 mg/dL (0.6-1.4); GLOM FILT RATE Estimated 20.1 mL/min (>60); MAGNESIUM 1.9 mg/dL (1.6-3.0); PHOSPHOROUS 4.2 mg/dL (2.5-4.6); POTASSIUM 4.2 mmol/L (3.5-5.1)
[2017-03-08 14:56] LABS: BASOPHIL% 0.1 % (0-2.5); HEMATOCRIT 23.4 % (35.0-45.0); HEMOGLOBIN 7.8 gm/dL (12.0-16.0); LYMPHOCYTE# 0.2 X10e3 (1.0-3.5); LYMPHOCYTE% 3.6 % (17.0-45.0); MEAN CELL VOLUME 97.6 FL (83-96); MEAN CORPUSCULAR HEMOGLOBIN 32.7 PG (28-34); MEAN CORPUSCULAR HGB CONC 33.5 g/dL (30-36); MONOCYTE# 0.1 X10e3 (0-1.0); MONOCYTE% 1.5 % (3.0-12.0); NEUTROPHIL# 4.4 X10e3 (1.5-7.1); NEUTROPHIL% 94.8 % (40-75); PLATELET COUNT 155 X10e3 (140-420); RED BLOOD COUNT 2.39 X10e (3.90-5.30); RED CELL DISTRIBUTION WIDTH 14.7 % (11.0-15.5)
[2017-03-08 14:57] LABS: DIFF IND NO; WHITE BLOOD COUNT 4.6 X10e3 (4.0-10.5)
[2017-03-09 04:47] LABS: HEMATOCRIT 24.3 % (35.0-45.0); HEMOGLOBIN 8.1 gm/dL (12.0-16.0); LYMPHOCYTE# 0.2 X10e3 (1.0-3.5); LYMPHOCYTE% 3.7 % (17.0-45.0); MEAN CELL VOLUME 97.9 FL (83-96); MEAN CORPUSCULAR HEMOGLOBIN 32.6 PG (28-34); MEAN CORPUSCULAR HGB CONC 33.3 g/dL (30-36); MEAN PLATELET VOLUME 9.1 FL (6.5-11.5); MONOCYTE# 0.1 X10e3 (0-1.0); MONOCYTE% 1.2 % (3.0-12.0); NEUTROPHIL# 6.2 X10e3 (1.5-7.1); NEUTROPHIL% 95.1 % (40-75); PLATELET COUNT 163 X10e3 (140-420); RED BLOOD COUNT 2.48 X10e (3.90-5.30); RED CELL DISTRIBUTION WIDTH 14.8 % (11.0-15.5); WHITE BLOOD COUNT 6.5 X10e3 (4.0-10.5)
[2017-03-09 04:48] LABS: DIFF IND NO
[2017-03-09 05:03] LABS: ALBUMIN SERUM 2.6 g/dL (3.5-5.0); BILIRUBIN,TOTAL 0.3 mg/dL (0.2-2.0); BUN/CREATININE RATIO 13.5; CALCIUM SERUM 8.4 mg/dL (8.4-10.2); POTASSIUM 3.7 mmol/L (3.5-5.1); PROTEIN TOTAL SERUM 5.6 g/dL (6.0-8.3)
[2017-03-09 05:25] LABS: FOLATE (FOLIC ACID) 1.9 ng/mL (>5.8)
[2017-03-09 09:55] LABS: FREE T3 2.9 pg/mL (2.5-3.9)
[2017-03-09 09:57] LABS: FREE THYROXIN (T4) 0.65 ng/dL (0.58-1.64)
[2017-03-10 05:06] LABS: HEMATOCRIT 24.7 % (35.0-45.0); HEMOGLOBIN 8.2 gm/dL (12.0-16.0); LYMPHOCYTE# 0.2 X10e3 (1.0-3.5); LYMPHOCYTE% 3.1 % (17.0-45.0); MEAN CELL VOLUME 98.3 FL (83-96); MEAN CORPUSCULAR HEMOGLOBIN 32.5 PG (28-34); MEAN CORPUSCULAR HGB CONC 33.1 g/dL (30-36); MONOCYTE# 0.1 X10e3 (0-1.0); MONOCYTE% 1.4 % (3.0-12.0); NEUTROPHIL# 5.7 X10e3 (1.5-7.1); NEUTROPHIL% 95.5 % (40-75); PLATELET COUNT 165 X10e3 (140-420); RED BLOOD COUNT 2.51 X10e (3.90-5.30); RED CELL DISTRIBUTION WIDTH 14.9 % (11.0-15.5)
[2017-03-10 05:44] LABS: DIFF IND NO
[2017-03-10 06:09] LABS: BUN/CREATININE RATIO 12.5; CALCIUM SERUM 8.9 mg/dL (8.4-10.2); POTASSIUM 3.7 mmol/L (3.5-5.1)
[2017-03-10 10:00] LABS: ARTERIAL BLD GAS O2 SATURATION 83.2 % (90.0-100.0); ARTERIAL BLOOD GAS CARBOXY HB 1.3 %sat (0.0-9.0); ARTERIAL BLOOD GAS HCO3 30.4 mmol/L; ARTERIAL BLOOD GAS MET HB 1.2 %sat (0.0-2.0); ARTERIAL BLOOD GAS PCO2 43.7 mmHg (35.0-45.0); ARTERIAL BLOOD GAS pH 7.451 (7.350-7.450)
[2017-03-10 10:01] LABS: ARTERIAL BLOOD GAS ALLEN TEST NORMAL; ARTERIAL BLOOD GAS ART SITE RIGHT RADIAL; ARTERIAL BLOOD GAS DELIVERY OXYMISER; ARTERIAL DRAW? YES
[2017-03-11 06:12] LABS: HEMATOCRIT 24.2 % (35.0-45.0); HEMOGLOBIN 8.2 gm/dL (12.0-16.0); MEAN CELL VOLUME 98.6 FL (83-96); MEAN CORPUSCULAR HEMOGLOBIN 33.3 PG (28-34); MEAN CORPUSCULAR HGB CONC 33.8 g/dL (30-36); MEAN PLATELET VOLUME 8.8 FL (6.5-11.5); RED BLOOD COUNT 2.46 X10e (3.90-5.30); RED CELL DISTRIBUTION WIDTH 14.9 % (11.0-15.5); WHITE BLOOD COUNT 5.5 X10e3 (4.0-10.5)
[2017-03-11 07:04] LABS: BUN/CREATININE RATIO 14.44; CREATININE SERUM 1.8 mg/dL (0.6-1.4); GLOM FILT RATE Estimated 28.4 mL/min (>60); POTASSIUM 3.8 mmol/L (3.5-5.1)
[2017-03-12 04:01] LABS: BUN/CREATININE RATIO 16.25; CALCIUM SERUM 8.7 mg/dL (8.4-10.2); CREATININE SERUM 1.6 mg/dL (0.6-1.4); GLOM FILT RATE Estimated 32.8 mL/min (>60); POTASSIUM 3.5 mmol/L (3.5-5.1)
[2017-03-13 03:32] LABS: HEMATOCRIT 24.6 % (35.0-45.0); HEMOGLOBIN 8.2 gm/dL (12.0-16.0); MEAN CELL VOLUME 98.6 FL (83-96); MEAN CORPUSCULAR HEMOGLOBIN 32.9 PG (28-34); MEAN CORPUSCULAR HGB CONC 33.3 g/dL (30-36); MEAN PLATELET VOLUME 8.9 FL (6.5-11.5); RED BLOOD COUNT 2.49 X10e (3.90-5.30); RED CELL DISTRIBUTION WIDTH 14.4 % (11.0-15.5); WHITE BLOOD COUNT 5.3 X10e3 (4.0-10.5)
[2017-03-13 04:00] LABS: BUN/CREATININE RATIO 15.62; CALCIUM SERUM 8.8 mg/dL (8.4-10.2); CREATININE SERUM 1.6 mg/dL (0.6-1.4); GLOM FILT RATE Estimated 32.8 mL/min (>60); POTASSIUM 3.6 mmol/L (3.5-5.1)
[2017-03-14 04:02] LABS: MEAN CELL VOLUME 98.8 FL (83-96); MEAN CORPUSCULAR HEMOGLOBIN 32.9 PG (28-34); MEAN CORPUSCULAR HGB CONC 33.3 g/dL (30-36); MEAN PLATELET VOLUME 8.8 FL (6.5-11.5); RED BLOOD COUNT 2.43 X10e (3.90-5.30); RED CELL DISTRIBUTION WIDTH 14.5 % (11.0-15.5); WHITE BLOOD COUNT 5.4 X10e3 (4.0-10.5)
[2017-03-14 04:34] LABS: BUN/CREATININE RATIO 14.37; CALCIUM SERUM 8.2 mg/dL (8.4-10.2); CREATININE SERUM 1.6 mg/dL (0.6-1.4); GLOM FILT RATE Estimated 32.8 mL/min (>60); POTASSIUM 3.5 mmol/L (3.5-5.1)
[2017-03-15] MEDS ORDERED: OMNICEF300 MG PO (13:55)
[2017-03-15] MEDS ORDERED: AZITHROMYCIN500 MG PO (13:56)
[2017-03-15] MEDS ORDERED: PREDNISONE10 MG PO (13:59)
[2017-03-15] MEDS ORDERED: DIFLUCAN100 MG PO (14:00)
[2017-03-15] MEDS ORDERED: FOLIC ACID1 MG PO (14:01)
[2017-03-15] MEDS ORDERED: ALPRAZOLAM0.5 MG PO (14:08)
[2017-03-15] MEDS ORDERED: MIRALAX17 G2 PO (16:34)
[2017-03-15] MEDS ORDERED: [UNRECOGNIZED DRUG - CODE] SUBQ (17:48)
[2017-03-15] MEDS ORDERED: PROCRIT SUBQ (18:24)
== END 2017-03-15 20:21 | disposition home health service (06) | DRG 189 ==
LOC: CED 11:18 → CICCU3 15:05 → CEDOF 15:05 → CED 15:36 → CEDOF 18:02 → CICCU3 18:02 → C3A PCU 03-10 10:47 → C4C 03-11 07:44
PROVIDERS: Emergency Medicine; Internal Medicine; Internal Medicine Endocrinology, Diabetes & Metabolism; Internal Medicine Nephrology
PROC: 05HM33Z Insertion of Infusion Device into Right Internal Jugular Vein, Percutaneous Approach (ICD-10-PCS; 2017-03-07)
PROC: 30233N1 Transfusion of Nonautologous Red Blood Cells into Peripheral Vein, Percutaneous Approach (ICD-10-PCS; 2017-03-08)
PROC: 0DB58ZX Excision of Esophagus, Via Natural or Artificial Opening Endoscopic, Diagnostic (ICD-10-PCS; principal; 2017-03-12 11:00)
PROC: 0DB68ZX Excision of Stomach, Via Natural or Artificial Opening Endoscopic, Diagnostic (ICD-10-PCS; 2017-03-12 11:00)
DX: J96.21 Acute and chronic respiratory failure with hypoxia (principal); R57.9 Shock, unspecified; E43 Unspecified severe protein-calorie malnutrition; N17.9 Acute kidney failure, unspecified; J18.9 Pneumonia, unspecified organism; B37.81 Candidal esophagitis; I13.0 Hypertensive heart and chronic kidney disease with heart failure and stage 1 through stage 4 chronic kidney disease, or unspecified chronic kidney disease; J44.0 Chronic obstructive pulmonary disease with (acute) lower respiratory infection; I50.32 Chronic diastolic (congestive) heart failure; J44.1 Chronic obstructive pulmonary disease with (acute) exacerbation; N18.4 Chronic kidney disease, stage 4 (severe); E27.40 Unspecified adrenocortical insufficiency; N39.0 Urinary tract infection, site not specified; J96.22 Acute and chronic respiratory failure with hypercapnia; K44.9 Diaphragmatic hernia without obstruction or gangrene; K29.50 Unspecified chronic gastritis without bleeding; F17.210 Nicotine dependence, cigarettes, uncomplicated; D63.1 Anemia in chronic kidney disease; Z68.23 Body mass index [BMI] 23.0-23.9, adult; F41.9 Anxiety disorder, unspecified; F31.9 Bipolar disorder, unspecified; J84.10 Pulmonary fibrosis, unspecified; G40.909 Epilepsy, unspecified, not intractable, without status epilepticus; E86.0 Dehydration; Z96.652 Presence of left artificial knee joint; Z90.710 Acquired absence of both cervix and uterus; E78.5 Hyperlipidemia, unspecified; Z80.1 Family history of malignant neoplasm of trachea, bronchus and lung; Z79.82 Long term (current) use of aspirin
CPT/HCPCS: 36415; 36430; 36600; 71010; 71250; 80048; 80053; 80076; 81003; 82274; 82308; 82553; 82607; 82728; 82746; 82803; 82947; 83540; 83605; 83690; 83735; 83880; 84100; 84134; 84439; 84443; 84466; 84481; 84484; 85025; 85027; 85610; 85730; 86850; 86900; 86901; 86923; 87040; 87086; 88305; 88312; 88313; 93005; 94640; 94660; 94760; 94761; 96360; 97110; 97116; 97162; 97167; 97530; 97535; 99285; C9113; G8978-GP; G8979-GP; G8987-GO; G8988-GO; J0456; J0696; J0885; J1450; J1815; J2020; J2250; J2920; J2930; P9016